=== PATIENT | male | born 1965 | race Caucasian/White ===

== ENCOUNTER 2024-06-23 08:39 | Observation (INO) ==
[2024-06-23] MEDS: KETOROLAC TROMETHAMINE 15 MG/ML VIAL IV STA (09:07)
[2024-06-23 09:25] LABS: Basophils # (auto) 0.05 K/uL (0.00-0.20); Basophils % (auto) 1.1 %; Eosinophils # (auto) 0.18 K/uL (0.00-0.50); Eosinophils % (auto) 3.9 %; Hematocrit (blood only) 46.3 % (42.0-52.0); Hemoglobin 15.9 g/dl (14.0-18.0); Immature Granulocytes # (auto) 0.02 K/uL (0.01-0.20); Immature Granulocytes % (auto) 0.4 %; Lymphocytes # (auto) 1.62 K/uL (1.20-3.40); Lymphocytes % (auto) 34.7 %; Mean Corpuscular Hemoglobin 29.6 pg (25.0-34.0); Mean Corpuscular Hgb Conc 34.3 g/dL (32.0-36.0); Mean Corpuscular Volume 86.2 fL (80.0-100.0); Monocytes # (auto) 0.45 K/uL (0.11-0.59); Monocytes % (auto) 9.6 %; Neutrophils # (auto) 2.35 K/uL (1.40-6.50); Neutrophils % (auto) 50.3 %; Platelet Count 200 K/uL (130-400); RDW Coefficient of Variation 12.6 % (11.5-14.5); RDW Standard Deviation 39.6 fL (36.4-46.3); Red Blood Count 5.37 M/uL (4.70-6.10); White Blood Count 4.67 K/ul (4.8-10.8)
[2024-06-23 09:34] LABS: Albumin Globulin Ratio 1.5 (0.9-2); Albumin Level 4.6 gm/dl (3.4-5.0); Bilirubin,Total 2.2 mg/dl (0.2-1.0); Est GFR (African American) 88.8 ml/min; Est GFR (Non-African American) 76.7 ml/min; Potassium 3.7 mmol/L (3.5-5.1); Total Protein 7.6 gm/dl (6.0-8.3)
--- NOTE | 2024-06-23 09:47 | Emergency Department Note ---
Impression & Plan Left ureteral calculus, Acute left flank pain ED Provider Note NAME: ABEL REZA AGE: 58 SEX: M : 1965 ARRIVES VIA: Walk-In INFORMANT: Patient, ED PROVIDER(S): Raul Pathak DO CHIEF COMPLAINT: Flank pain HPI: The patient is a 58-year-old male who has a history of kidney stones who presented to the emergency department for an evaluation of flank pain. The patient noticed left-sided flank pain that occurred acutely this morning. He had nausea as well as vomiting. He denies having any dysuria or frequency. He denies having any chest pain or difficulty breathing. The patient presented to the emergency department because of the severity of pain. He was not seen by his family doctor prior to coming to the emergency department. ROS: See above HPI for pertinent positives & negatives. A total of 10 systems reviewed and were otherwise negative. PAST MEDICAL HISTORY: See Below PAST SURGICAL HISTORY: See Below FAMILY HISTORY: See Below SOCIAL HISTORY: See Below HOME MEDICATIONS: See Below ALLERGIES: See Below VITALS: See Below PHYSICAL EXAMINATION: GENERAL: The patient is awake and alert. The patient appears uncomfortable. EYES: The conjunctivae are clear. The pupils are round and reactive. EARS, NOSE, MOUTH AND THROAT: The nose is without any evidence of any deformity. NECK: The neck is nontender and supple. RESPIRATORY: Normal respiratory effort is noted there is no evidence of wheezing rhonchi or rales CARDIOVASCULAR: Regular rate and rhythm noted there no murmurs rubs or gallops normal S1 normal S2. GASTROINTESTINAL: The abdomen is soft. Abdomen is nontender. BACK: No midline tenderness or or step-off noted range of motion in flexion extension as well as rotation no signs of muscle spasm noted MUSCULOSKELETAL/EXTREMITIES: There is no evidence of gross deformity full range of motion is noted in the hips and shoulders. SKIN: There is no obvious evidence of any rash. There are no petechiae, pallor or cyanosis noted. NEUROLOGIC: Patient is awake alert and oriented x3 strength is symmetric patellar reflexes are 2+ bilaterally MEDICAL DECISION MAKING: The patient is a 58-year-old male who presented to the emergency department for an evaluation of left flank pain. The patient was found to have a distal left ureteral calculus. He has mild hydronephrosis. The patient was treated with multiple rounds of IV pain medication and IV antiemetics. He was also given IV fluids. The patient was also found have an abnormality on CAT scan that they thought could be related to a renal vein thrombosis but this was found not to be the case on ultrasound. The patient was not feeling much better on reevaluation. I do not feel that he would be a good candidate for outpatient management at this time. I will discuss his condition with the on-call [facility] hospitalist. Triage Nursing notes reviewed. Prior medical records reviewed Vital Signs: reviewed and remarkable for no significant abnormalities Differential diagnosis: Renal colic, UTI, appendicitis, diverticulitis, mesenteric ischemia, aortic pathology, infections, inflammatory bowel disease, PUD, biliary pathology, as well as other pathologies. ER treatment provided: See below Diagnostics interpreted by me: ECG: EKG was obtained in the emergency department. My interpretation is sinus bradycardia 49 bpm. There is no ectopy. There is no acute ST segment abnormalities noted. This was compared to a tracing from May 30, 2022. No changes were noted. Cardiac Monitoring: An order was placed for continuous cardiac monitoring. The monitor shows a rate of 83 bpm with sinus rhythm. Laboratory studies: As stated above and show below. Imaging studies: See below. Radiographic imaging was reviewed by myself Consultation(s): I discussed this case with Luz [facility] Past Med/Surg History Problem List (Updated 06/23/24 @ 14:37 by Raul Pathak DO) Acute left flank pain (Acute) Left ureteral calculus (Acute) COVID-19 (Acute) Medical History Hypertension Social History Smoking Status: Never smoker Preferred Language: Serbian Feels Safe at Home: Yes Allergies Allergies Allergy/AdvReac Type Severity Reaction Status Date / Time No Known Allergies Allergy Unverified 06/23/24 11:16 Home Meds Home Medications Medication Instructions Recorded Confirmed aspirin 81 mg capsule 81 mg PO DAILY 06/23/24 06/23/24 lisinopril 10 mg tablet 10 mg PO DAILY 06/23/24 06/23/24 omeprazole 20 mg capsule,delayed 40 mg PO DAILY 06/23/24 06/23/24 release Results & Data (ED) Vital Signs Vital Signs - 24 hr 06/23/24:43 06/23/24 09:00 06/23/24 09:02 Pulse Rate 72 43 L 64 Pulse Rate from SpO2 Sensor Pulse Rhythm Regular Respiratory Rate 18 16 20 Respiratory Effort / Characteristics Non-Labored Respiratory Depth Normal Respiratory Pattern Regular Blood Pressure 130/81 118/85 Blood Pressure Mean 97 91 Pulse Oximetry 100 99 100 Oxygen Delivery Method Room Air Room Air Sepsis Recent Fever Within 48 Hours No Sepsis New/Unexplained Change in Mental Status N/A Sepsis Action Taken by Nursing No Action Required 06/23/24 09:03 06/23/24 09:42 06/23/24 10:00 Pulse Rate 71 60 62 Pulse Rate from SpO2 Sensor Pulse Rhythm Respiratory Rate 14 17 Respiratory Effort / Characteristics Respiratory Depth Respiratory Pattern Blood Pressure 130/88 126/84 Blood Pressure Mean 102 92 Pulse Oximetry 100 94 Oxygen Delivery Method Room Air Sepsis Recent Fever Within 48 Hours Sepsis New/Unexplained Change in Mental Status Sepsis Action Taken by Nursing 06/23/24 10:30 06/23/24 11:54 06/23/24 12:00 Pulse Rate 79 79 60 Pulse Rate from SpO2 Sensor Pulse Rhythm Respiratory Rate 16 23 17 Respiratory Effort / Characteristics Respiratory Depth Respiratory Pattern Blood Pressure 142/89 H 136/92 137/79 Blood Pressure Mean 114 106 103 Pulse Oximetry 100 98 94 Oxygen Delivery Method Sepsis Recent Fever Within 48 Hours Sepsis New/Unexplained Change in Mental Status Sepsis Action Taken by Nursing 06/23/24 12:09 06/23/24 12:15 06/23/24 12:24 Pulse Rate 45 L 68 63 Pulse Rate from SpO2 Sensor 46 L 71 60 Pulse Rhythm Respiratory Rate 17 18 13 Respiratory Effort / Characteristics Respiratory Depth Respiratory Pattern Blood Pressure Blood Pressure Mean Pulse Oximetry 94 100 100 Oxygen Delivery Method Sepsis Recent Fever Within 48 Hours Sepsis New/Unexplained Change in Mental Status Sepsis Action Taken by Nursing 06/23/24 12:30 06/23/24 13:14 06/23/24 13:30 Pulse Rate 53 L 50 L Pulse Rate from SpO2 Sensor Pulse Rhythm Respiratory Rate 17 18 Respiratory Effort / Characteristics Respiratory Depth Respiratory Pattern Blood Pressure 148/109 H 128/85 120/79 Blood Pressure Mean 119 100 92 Pulse Oximetry 96 98 Oxygen Delivery Method Sepsis Recent Fever Within 48 Hours Sepsis New/Unexplained Change in Mental Status Sepsis Action Taken by [facility] Medications Current Medication List: was personally reviewed by me Laboratory Data Attestation: I reviewed the patient's lab results. 06/23/24 09:00 06/23/24 09:00 Lab Results 06/23/24 06/23/24 Range/Units 09:00 13:05 WBC 4.67 L (4.8-10.8) K/ul RBC 5.37 (4.70-6.10) M/uL Hgb 15.9 (14.0-18.0) g/dl Hct 46.3 (42.0-52.0) % MCV 86.2 (80.0-100.0) fL MCH 29.6 (25.0-34.0) pg MCHC 34.3 (32.0-36.0) g/dL RDW Std Deviation 39.6 (36.4-46.3) fL RDW Coeff of Joe 12.6 (11.5-14.5) % Plt Count 200 (130-400) K/uL MPV 9.0 L (9.4-12.4) fL Immature Gran % (Auto) 0.4 % Neut % (Auto) 50.3 % Lymph % (Auto) 34.7 % [place] % (Auto) 9.6 % Eos % (Auto) 3.9 % Baso % (Auto) 1.1 % Neut # (Auto) 2.35 (1.40-6.50) K/uL Lymph # (Auto) 1.62 (1.20-3.40) K/uL [place] # (Auto) 0.45 (0.11-0.59) K/uL Eos # (Auto) 0.18 (0.00-0.50) K/uL Baso # (Auto) 0.05 (0.00-0.20) K/uL Immature Gran # (Auto) 0.02 (0.01-0.20) K/uL Sodium 138 (136-145) mmol/L Potassium 3.7 (3.5-5.1) mmol/L Chloride 105 (98-107) mmol/L Carbon Dioxide 25 (21-32) mmol/L Anion Gap 8 (3-11) BUN 16 (6-23) mg/dl Creatinine 1.07 (0.6-1.4) mg/dl Est Cr Clr Drug Dosing 86.0 ml/min Est GFR ( Amer) 88.8 ml/min Est GFR (Non-Af Amer) 76.7 ml/min BUN/Creatinine Ratio 15.0 (10-20) Glucose 137 H (70-99(Fasting)) mg/dl Calcium 10.0 (8.6-10.3) mg/dl Total Bilirubin 2.2 H (0.2-1.0) mg/dl AST 23 (13-39) U/L ALT 25 (7-52) U/L Alkaline Phosphatase 89 (34-104) U/L Total Protein 7.6 (6.0-8.3) gm/dl Albumin 4.6 (3.4-5.0) gm/dl Globulin 3.0 (2.5-4.0) gm/dl Albumin/Globulin Ratio 1.5 (0.9-2) Lipase 26 (11-82) U/L Urine Color Yellow Urine Appearance Clear (Clear) Urine pH 6.0 (4.5-7.5) Ur Specific [place] 1.018 (1.000-1.030) Urine Protein Negative (Negative) Urine Glucose (UA) Negative (Negative) Urine Ketones 1+ H (Negative) Urine Blood 1+ H (Negative) Urine Nitrite Negative (Negative) Urine Bilirubin Negative (Negative) Urine Urobilinogen Positive H (Negative) Ur Leukocyte Esterase Negative (Negative) Urine WBC (Auto) 0-5 (0-5) /hpf Urine RBC (Auto) 3-5 H (0-2) /hpf U Hyaline Cast (Auto) 0-2 (0-2) /lpf U Epithel Cells (Auto) 0-2 (0-2) /hpf Urine Bacteria (Auto) None Seen (None Seen) Administered Medications Discontinued Medications Sodium Chloride (Nss) 500 mls @ 999 mls/hr IV .Q31M ONE Stop: 06/23/24 12:05 Last Infusion: 06/23/24 12:10 Dose: Infused Documented By: Admin: 06/23/24 11:39 Dose: 999 mls/hr Documented By: TEE Ketorolac Tromethamine (Ketorolac Tromethamine 15 Mg/Ml Vial) 10 mg IV ONE STA Stop: 06/23/24 08:58 Last Admin: 06/23/24 09:07 Dose: 10 mg Documented By: TEE Morphine Sulfate (Morphine Sulfate 4 Mg/Ml 1 Ml Carp\Vial) 4 mg IV NOW STA Stop: 06/23/24 09:20 Last Admin: 06/23/24 09:52 Dose: 4 mg Documented By: TEE Morphine Sulfate (Morphine Sulfate 4 Mg/Ml 1 Ml Carp\Vial) 4 mg IV NOW STA Stop: 06/23/24 11:36 Last Admin: 06/23/24 11:39 Dose: 4 mg Documented By: TEE Ondansetron HCl (Ondansetron Inj 2 Mg/Ml 2 Ml Vial) Confirm Administered Dose 4 mg .ROUTE .STK-MED ONE Stop: 06/23/24 11:46 Last Admin: 06/23/24 11:54 Dose: 4 mg Documented By: TEE Imaging Data Attestation: I personally reviewed and interpreted this imaging study as follows: My Impression: CT of the abdomen and pelvis was obtained in the emergency department. My interpretation is no free air or signs of bowel obstruction, final report below. Radiologist's Impression: Abdomen/Pelvis CT 06/23/24 08:[address] WITHOUT CONTRAST CT DOSE: 1371.89 mGy.cm HISTORY: L flank pain h/o kidney stones TECHNIQUE: Multiaxial CT images of the abdomen and pelvis were performed without contrast. A dose lowering technique was utilized adhering to the principles of ALARA. COMPARISON STUDY: None. FINDINGS: The lung bases are clear. No pneumoperitoneum. No pneumatosis. There is a 2.6 cm sclerotic focus within the right posterior iliac bone. This is indeterminate but may represent a bone island. A few additional smaller sclerotic foci within the pelvis also favor bone islands. Prior cholecystectomy. The unenhanced liver, spleen, adrenal glands, and pancreas are unremarkable. Normal caliber abdominal aorta. No retroperitoneal lymphadenopathy. There is a punctate stone within the lower pole of the right kidney. No left renal calculi. There is an 11 mm hypodense lesion within the interpolar right kidney. This is incompletely characterized on this noncontrast study but statistically represents a cyst. There is mild left hydroureteronephrosis which is secondary to a 2 mm stone either within or just beyond the left ureterovesical junction on image 315. The bladder is decompressed and not well evaluated. The prostate gland is mildly enlarged. No pelvic free fluid or pelvic lymphadenopathy. No bowel wall thickening or obstruction. Colonic diverticulosis. No evidence for acute diverticulitis. There is thickening and greater than expected density within the distal left renal vein. There is also mild surrounding fat stranding at this location. The fat stranding is likely due to the left-sided hydronephrosis. However, dedicated duplex ultrasound of the left renal vein is recommended to exclude the less likely possibility of a left renal vein thrombosis. IMPRESSION: 1. Mild left hydroureteronephrosis secondary to a 2 mm stone either within or just beyond the left ureterovesical junction. 2. Right-sided nephrolithiasis. 3. Greater than expected density within the distal left renal vein with mild surrounding fat stranding. The fat stranding is likely due to the left-sided hydronephrosis. However, dedicated duplex ultrasound of the left renal vein is recommended to exclude the less likely possibility of a left renal vein thrombosis. 4. No bowel wall thickening or obstruction. 5. A 2.5 cm sclerotic focus in the right posterior iliac bone. This is indeterminate but favors a bone island. 6. Colonic diverticulosis. No evidence for acute diverticulitis. ACT 112: Negative or not required by law. Electronically signed by: Nitin Bridges M.D. 06/23/2024 9:52 AM Renal Artery Duplex 06/23/24 10:21 US duplex renal artery HISTORY: 58 years-old Male r/o left renal vein thrombosis acute left-sided flank pain COMPARISON: CT same day TECHNIQUE: Multiple real-time sonographic images of the left renal vasculature was obtained assessing grayscale appearance, color and spectral flow FINDINGS: Left kidney measures 11.9 x 5.8 x 5.4 cm. Patent left renal artery with low resistance waveforms. Mild left-sided hydronephrosis with 3 mm calculus in the left ureterovesicular junction. Patent renal vein without thrombus identified. IMPRESSION: 1. Patent left renal artery and vein. 2. Mild left-sided hydronephrosis with 3 mm calculus again noted within the left ureterovesicular junction. ACT 112: Negative or not required by law. The above report was generated using voice recognition software. It may contain grammatical, syntax or spelling errors. Electronically signed by: Joce Hernandez M.D. 06/23/2024 11:55 AM Discharge Plan Visit Data Chief Complaint: Back Injury/Pain Stated Complaint: LOWER L BACK PAIN ED Provider: Raul Pathak ED Midlevel Provider: Enmanuel Baig Discharge Problem: Left ureteral calculus, Acute left flank pain Patient Disposition: Being Evaluated by Hospitalist Forms Stand Alone Forms: My [facility] Prescriptions Prescriptions: No Action lisinopril 10 mg tablet 10 mg PO DAILY omeprazole 20 mg capsule,delayed release(DR/EC) 40 mg PO DAILY aspirin 81 mg Capsule 81 mg PO DAILY Referrals Referrals: David Shahid MD [Primary Care Provider] -
[2024-06-23] MEDS: MoRPHine SULFATE 4 MG/ML 1 ML CARP\\VIAL IV STA ×2 (09:52→11:39)
--- NOTE | 2024-06-23 09:55 | CT Scan Report ---
ABDOMEN AND PELVIS CT WITHOUT CONTRAST CT DOSE: 1371.89 mGy.cm HISTORY: L flank pain h/o kidney stones TECHNIQUE: Multiaxial CT images of the abdomen and pelvis were performed without contrast. A dose lo wering technique was utilized adhering to the principles of ALARA. COMPARISON STUDY: None. FINDINGS: The lung bases are clear. No pneumoperitoneum. No pneumatosis. There is a 2.6 cm sclerotic focus within the right posterior iliac bone. This is indeterminate but may represent a bone island. A few additional smaller sclerotic foci within the pelvis also favor bone islands. Prior cholecystecto my. The unenhanced liver, spleen, adrenal glands, and pancreas are unremarkable. Normal caliber abdom inal aorta. No retroperitoneal lymphadenopathy. There is a punctate stone within the lower pole of th e right kidney. No left renal calculi. There is an 11 mm hypodense lesion within the interpolar right kidney. This is incompletely characterized on this noncontrast study but statistically represents a cyst. There is mild left hydroureteronephrosis which is secondary to a 2 mm stone either within or ju st beyond the left ureterovesical junction on image 315. The bladder is decompressed and not well maddy luated. The prostate gland is mildly enlarged. No pelvic free fluid or pelvic lymphadenopathy. No bow el wall thickening or obstruction. Colonic diverticulosis. No evidence for acute diverticulitis. Ther e is thickening and greater than expected density within the distal left renal vein. There is also mi ld surrounding fat stranding at this location. The fat stranding is likely due to the left-sided hydr onephrosis. However, dedicated duplex ultrasound of the left renal vein is recommended to exclude the less likely possibility of a left renal vein thrombosis. IMPRESSION: 1. Mild left hydroureteronephrosis secondary to a 2 mm stone either within or just beyond the left ur eterovesical junction. 2. Right-sided nephrolithiasis. 3. Greater than expected density within the distal left renal vein with mild surrounding fat strandin g. The fat stranding is likely due to the left-sided hydronephrosis. However, dedicated duplex ultras ound of the left renal vein is recommended to exclude the less likely possibility of a left renal vei n thrombosis. 4. No bowel wall thickening or obstruction. 5. A 2.5 cm sclerotic focus in the right posterior iliac bone. This is indeterminate but favors a bon e island. 6. Colonic diverticulosis. No evidence for acute diverticulitis. ACT 112: Negative or not required by law. Electronically signed by: Nitin Bridges M.D. 06/23/2024 9:52 AM
--- OUTSIDE RECORDS SUMMARY | 2024-06-23 11:17 | External Medical Summary | Summary of Care ---
Author Name Unknown Organization [facility] Address [address] [place] [address] Phone [phone] Care Team Providers Care Lens Inspector Name Role Phone Nichole García DO Primary Care Provider + [phone] Reason for Referral * Ancillary Services (Within 10 days (routine)) - Authorized Specialty Diagnoses / Procedures Referred By Contfrida t Referred To Contact Gastroenterology Diagnoses Family history of colon cancer Nichole García DO [address] [place] [address] [place] [address] Referral ID Status Reason Start Date Expiration Date Visits Requested Visits Authorized [id number] Authorized Ancillary Services Required 03/25/[phone] Question Answer Referral Priority Within 10 days (routine) Where should this appointment be scheduled? [facility] Comments ALERT: Do not order for pediatric patients (18 years or younger). Cancel off screen and order PEDS GASTROENTEROLOGY CONSULT (Type: 1 visit only-Evaluate and Treat) The following Pt. Instructions are available: - Gastro Colonoscopy Prep Instructions [41703] - Gastro Colonoscopy Prep Instructions (Japanese Version) [[id number]] Go to the Pt. Instructions section within the Visit Navigator to access. Colonoscopy ASGE Guidelines: Single first degree relative with cancer at age greater than 60 (begin at age 40, 5 year intervals) ADDITIONAL INFORMATION 1. Is the patient on Coumadin? No 2. Is the patient on Pradaxa? No Reason for Visit * Reason Onset Date Comments Referral 03/21/2024 Encounter Details Date Type Department Care Team ([facility] Contact Info) Description 03/21/2024 Telephone Family Medicine [address] [place] [phone] [address] Garc[address] [place] [address] Referral Allergies Active Allergy Reactions Criticality Noted Date Comments No Known Drug Allergy 07/09/2001 documented as of this encounter (statuses as of 03/30/2024) Medications Medication Sig Dispensed Refills Start Date End Date Status aspirin 81 MG chewable tablet Take 1 Tablet by mouth in the morning. 0 Active Tretinoin Microsphere 0.1 % External GelIndications:Acne vulgaris Apply topically to affected area daily. apply to acne. 20 g 5 11/12/2022 Active Clindamycin Phosphate 1 % External SolutionIndications :Other acne USE DIRECTED TWICE A DAY 60 mL 1 12/18/2022 Active Omeprazole 20 MG Oral Capsule Delayed Release (PriLOSEC)Indicatio ns:Esophageal reflux TAKE 2 CAPSULES BY MOUTH EVERY DAY 180 Capsule 1 07/29/2023 Active Lisinopril 10 MG Oral Tablet (Prinivil)Indicatio ns:Acute right-sided low back pain without sciatica TAKE 1 TABLET BY MOUTH EVERY DAY IN THE MORNING 90 Tablet 2 07/29/2023 Active Tadalafil 5 MG Oral Tablet (Cialis)Indications :BPH with obstruction/lower urinary tract symptoms Take 1 Tablet by mouth in the morning. 90 Tablet 3 12/29/2023 Active documented as of this encounter (statuses as of 03/30/2024) Active Problems Problem Noted Date Diagnosed Date CKD (chronic kidney disease), stage II 2 Overview: EGFR 80 Sebaceous cyst 07/16/2017 Primary hypertension 06/09/2016 BPH with obstruction/lower urinary tract symptom s 11/29/2015 Gastroesophageal reflux dise ase with esophagitis without hemorrhage PPD positive BMI 35.0-35.9,adult Overview: 231 lbs Acne vulgaris documented as of this encounter (statuses as of 03/30/2024) Resolved Problems Problem Noted Date Diagnosed Date Resolved Date Arthritis of left knee 03/05/202312/29 Peripheral tear of medial me niscus of left knee as current injury 07/16/2021 03/05/2023 Overview: High-grade partial tear at the posterior root attachment of the medial meniscus with horizontal and radial components HTN, goal below 140/90 09/28/200907/03 Overview: Modified per HTN Taxonomy. Hyperglycemia 01/27/2009 10/20/2018 Overview: Glucose 101, insulin level 15.4 HTN, goal below 140/90 01/19/200909/28 Overview: Modified per HTN Taxonomy. PLANTAR FIBROMATOSIS 07/14/2005 014 LOC OSTEOARTH NOS-L-LEG 12/16/200406/24 Other acne 10/09/2004 12/31/2015 Closed fracture of metatarsal bone 08/06/2004 12/16/2011 Overview: ICD-10 update of inactive term Asthma with severity to be determined 11/09/2013 Overview: ICD-10 update of inactive term Nonspecific reaction to tube rculin skin test without active tuberculosis 12/16/2011 Overview: ICD-10 update of inactive term BMI 32.0-32.9,adult 07/14/20 14 documented as of this encounter (statuses as of 03/30/2024) Immunizations Name Administration Dates Next Due Pneumococcal Polysaccharide PPV23 (Pneumovax) 11/23/2007 Seasonal Influenza, PF, 6 M & above, IM , (FluLaval or Fluzone) 10/20/2018 Seasonal Influenza, Quadriva lent, No Preserve, IM 10/11/2015 Seasonal Influenza, Split, I IV3, With Preserve, Inj 07/24/2016,09/23/2009,09/23/2008 TD - Tetanus/Diptheria (ADULT) 06/15/2006 TDAP (age 10 and older)(Boostrix) 08/01/2022,12/2012 documented as of this encounter Social History Tobacco Use Types Packs/Day Years Used Date Smoking Tobacco: Never Smokeless Tobacco: Never Alcohol Use Standard Drinks/Week Comments Yes 0 (1 standard drink = 0.6 oz pur e alcohol) once a week PHQ-2 Answer Date Recorded PHQ-2 Score 0 03/12/2019 Sex and Gender Information Value Date Recorded Sex Assigned at Not on file Gender Identity Not on file Sexual Orientation Not on file Job Start Date Occupation Industry Not on file Not on file Not on file documented as of this encounter Miscellaneous Notes * Telephone Encounter - Aury Orr OSA - 03/30/2024 10:29 AM EDT Patient rescheduled to have both procedures done at the same time in August * Telephone Encounter - Sharona Kaur OSA - 03/25/2024 9:04 AM EDT Pt is scheduled already for upper endoscopy on 04/05/24, can this be added to that? * Telephone Encounter - Nichole García DO - 03/25/2024 8:30 AM EDT Please schedule colonoscopy. * Telephone Encounter - Nichole García DO - 03/25/2024 8:25 AM EDT If he has a family history of colon cancer, he would be eligible for colonoscopy every 5 years. 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 Colonoscopy ordered. My G sent to patient. * Telephone Encounter - Gulshan Tolentino OSA - 03/23/2024 9:45 AM EDT Spoke with Jeet pt stated father and friends in the [employer] no sure if they were expos to anythinghave been cancer pt is very concern request call back [phone]. Patient was told he was Not dueunt2026. Has the patient been seen for this problem? (Y/N)?: Y If No, an appt needs to be scheduled before a referral will be placed (exception: proceed with referral request if referral request is for a yearly routine appointment with speciality) Patient Name: Jeet Gorman Patient Primary care provider: Nichole García, DO Does this need to be an insurance referral (Y/N)?: Y If Yes, does the insurance referral need to be placed into the Navinet system? Name of preferred specialist: [facility] Type of specialist: GI Location of specialist: [facility] Reason for visit: SCREENING COLONOSCOPY Date of visit: NA NEEDS REFERRAL FIRST * Telephone Encounter - Nichole García DO - 03/22/2024 8:40 PM EDT Not due until 2026. MyG sent to patient for clarification. * Telephone Encounter - Roxana Jarquin OSA - 03/21/2024 1:10 PM EDT Has the patient been seen for this problem? (Y/N)?: Y If No, an appt needs to be scheduled before a referral will be placed (exception: proceed with referral request if referral request is for a yearly routine appointment with speciality) Patient Name: Jeet Gorman Patient Primary care provider: Nichole García, DO Does this need to be an insurance referral (Y/N)?: Y If Yes, does the insurance referral need to be placed into the Navinet system? Name of preferred specialist: [facility] Type of specialist: GI Location of specialist: [facility] Reason for visit: SCREENING COLONOSCOPY Date of visit: NA NEEDS REFERRAL FIRST documented in this encounter Plan of Treatment Upcoming Encounters Date Type Department Care Team (Latest Contact Info) Description 05/24/2024 3:40 PM EDT Office Visit [facility] [address] [place] [phone] Janie Gorman DO [address] [facility] [place] [address] 07/22/2024 8:30 AM EDT Office Visit Family Medicine [address] [place] [phone] Nichole García [address] [place] [address] 08/01/2024 8:30 AM EDT Office Visit Urology, [facility] [address] [place] [address] Bhavik Limon MD [address] [address] [place] [address] 08/31/2024 9:00 AM EDT Hospital Encounter ENDO [facility], Endoscopy Room [facility] [address] [place] [phone] Vilma Bell MD [address] [place] [address] 08/31/2024 9:00 AM EDT - 08/31/2024 10:00 AM EDT Surgery ENDO [facility], Endoscopy Room [facility] [address] [place] [phone] Vilma Bell MD [address] [place] [address] COLONOSCOPY FLEXIBLE PROXIMAL DIAGNOSTIC Scheduled Procedures Name Priority Associated Diagnoses Date/Ti me COLONOSCOPY FLEXIBLE PROXIMA L DIAGNOSTIC GERD (gastroesophageal reflux disease) Family history of colon cancer 08/31/2024 9:00 AM EDT ESOPHAGOGASTRODUODENOSCOPY ( EGD), FLEXIBLE, TRANSORAL, DIAGNOSTIC GERD (gastroesophageal reflux disease) Family history of colon cancer 08/31/2024 9:00 AM EDT Scheduled Referrals Name Type Priority Associated Diagnoses Orde r Schedule COLONOSCOPY, GI REFERRAL OP Referral Within 10 days (routine) Family history of colon cancer Ordered: 03/25/2024 Health Maintenance Due Date Last Done Comments Hepatitis B (1 of 3 - 19+ 3-dose series) 1985 Cologuard 2011 Fecal Occult Blood Test 2011 Sigmoidoscopy 2011 Zoster Vaccines (1 of 2) 2016 Depression Screening 03/10/2020 03/10/2019 COVID-19 Vaccine ( season) 2023 Influenza Vaccine (FLU shot) (Season Ended) 2024 10/20/2018, 11/27/2017, 11/12/2016, Additional history exists GFR 11/27/2024 11/27/2023, 01/22, 11/19/2022, Additional history exists Albumin/Creatinine Ratio 03/19/2025 03/19/2022, 03/0 11/2020 Diabetes Screening 11/27/2026 11/27/2023, 0 02/18/2023, 02/18/2023, Additional history exists Colonoscopy 01/01/2027 01/01/2017, 01/01/2017 Colorectal Cancer Screening 01/01/2027 Lipid Panel 11/27/2028 11/27/2023, 04/24, 10/19/2018, Additional history exists DTaP,Tdap,and Td Vaccines (3 - Td or Tdap) 08/01/2032 08/01/2022, 06/24/2013, 06/15/2006 Pneumococcal Vaccine: Pediatrics (0 to 5 Years) and At-Risk Patients (6 to 64 Years) Aged Out 11/23/2007 No longer eligible based on patient's age to complete this topic GARDASIL-HPV IMMUNIZATION SERIES Aged Out No longer eligible based on patient's age to complete this topic MENINGOCOCCAL (MENACTRA/MENVEO) Aged Out No longer eligible based on patient's age to complete this topic documented as of this encounter Medical Devices Not on filedocumented as of this encounter Visit Diagnoses Diagnosis Family history of colon cancer- Primary Family history of malignant neoplasm of gastrointestinal tract GERD (gastroesophageal reflux disease) Esophageal reflux Family history of colon cancer Family history of malignant neoplasm of gastrointestinal tract documented in this encounter Advance Directives Latest Code Status on File Code Status Date Activated Date Inactivated Comments Full Code 05/11/2023 10:28 AM 05/11/2023 3:23 PM This order reflects the patients wishes and were consensually agreed upon. Question Answer Comments Discussion of Advance Directives occurred with: Patient Code Status History Code Status Date Activated Date Inactivated Comments Full Code 05/11/2023 7:34 AM 05/11/2023 10:28 AM This order reflects the patients wishes and were consensually agreed upon. Question Answer Comments Discussion of Advance Directives occurred with: Patient Care Teams Lens Inspector Relationship Specialty Start Date End Date Nichole García DO [address] [place] [address] [place] [address] PCP - General Internal Medicine 12/29/23 documented as of this encounter
--- OUTSIDE RECORDS SUMMARY | 2024-06-23 11:17 | External Medical Summary | Summary of Care ---
Author Name Unknown Organization [facility] Address [address] [place] [address] Phone [phone] Care Team Providers Care Consumer Insight Manager Name Role Phone Howie Singh Primary Care Provider + [phone] Reason for Visit * Reason Comments eRx-Medication Refill Encounter Details Date Type Department Care Team (Late st Contact Info) Description 04/04/2024 Refill Family Medicine [address] [phone] David Shahid MD [address] [place] [address] [place] [address] Esophageal reflux Allergies Active Allergy Reactions Criticality Noted Date Comments No Known Drug Allergy 07/09/2001 documented as of this encounter (statuses as of 04/05/2024) Medications Medication Sig Dispensed Refills Start Date End Date Status aspirin 81 MG chewable tablet Take 1 Tablet by mouth in the morning. 0 Active Tretinoin Microsphere 0.1 % External GelIndications:Ac ne vulgaris Apply topically to affected area daily. apply to acne. 20 g 5 11/12/2022 Active Clindamycin Phosphate 1 % External SolutionIndicatio ns:Other acne USE DIRECTED TWICE A DAY 60 mL 1 12/18/2022 Active Lisinopril 10 MG Oral Tablet (Prinivil)Indicat ions:Acute right-sided low back pain without sciatica TAKE 1 TABLET BY MOUTH EVERY DAY IN THE MORNING 90 Tablet 2 07/29/2023 Active Tadalafil 5 MG Oral Tablet (Cialis)Indicatio ns:BPH with obstruction/lower urinary tract symptoms Take 1 Tablet by mouth in the morning. 90 Tablet 3 12/29/2023 Active Omeprazole 20 MG Oral Capsule Delayed Release (PriLOSEC)Indicat ions:Esophageal reflux TAKE 2 CAPSULES BY MOUTH EVERY DAY 180 Capsule 1 04/05/2024 Active Omeprazole 20 MG Oral Capsule Delayed Release (PriLOSEC)Indicat ions:Esophageal reflux TAKE 2 CAPSULES BY MOUTH EVERY DAY 180 Capsule 1 07/29/2023 4 Discontinued documented as of this encounter (statuses as of 04/05/2024) Active Problems Problem Noted Date Diagnosed Date CKD (chronic kidney disease), stage II 2 Overview: EGFR 80 Sebaceous cyst 07/16/2017 Primary hypertension 06/09/2016 BPH with obstruction/lower urinary tract symptom s 11/29/2015 Gastroesophageal reflux dise ase with esophagitis without hemorrhage PPD positive BMI 35.0-35.9,adult Overview: 231 lbs Acne vulgaris documented as of this encounter (statuses as of 04/05/2024) Resolved Problems Problem Noted Date Diagnosed Date [...] as of this encounter (statuses as of 04/05/2024) Immunizations Name Administration Dates Next Due Pneumococcal [...] encounter Miscellaneous Notes * Telephone Encounter - Howie Arroyo [facility] - 04/05/2024 12:02 PM EDT Signed Prescriptions: Disp Refills Omeprazole 20 MG Oral Capsule Delayed Rele*180 Ca*1 Sig: TAKE 2 CAPSULES BY MOUTH EVERY DAYAuthorizing Provider: HOWIE SINGH User: HOWIE ARROYO documented in this encounter Plan of Treatment Upcoming Encounters Date Type Department Care Team (Latest Contact Info) Description 04/21/2024 4:30 PM EDT Office Visit [facility] Disorders [facility]tr [facility] [address] [place] [phone] Noemi Gamez CRNP [address] [place] [address] 07/22/2024 8:30 AM EDT Office Visit Family Medicine [address] [place] [phone] [place] [address] 08/01/2024 8:30 AM EDT Office Visit Urology, [facility] [address] [place] [address] Bhavik Limon MD [address] [place] [address] [place] [address] 08/31/2024 9:00 AM EDT Hospital Encounter ENDO [facility], Endoscopy Room [facility] [address] [place] [phone] Vilma Bell MD [address] [place] [address] 08/31/2024 9:00 AM EDT - 08/31/2024 10:00 AM EDT Surgery ENDO [facility], Endoscopy Room [facility] [address] [place] [phone] Vilma Bell MD [address] [place] [address] COLONOSCOPY FLEXIBLE PROXIMAL DIAGNOSTIC Scheduled Procedures Name Priority Associated Diagnoses Date/Ti me COLONOSCOPY FLEXIBLE PROXIMA L DIAGNOSTIC GERD (gastroesophageal reflux disease) Family history of colon cancer 08/31/2024 9:00 AM EDT ESOPHAGOGASTRODUODENOSCOPY ( EGD), FLEXIBLE, TRANSORAL, DIAGNOSTIC GERD (gastroesophageal reflux disease) Family history of colon cancer 08/31/2024 9:00 AM EDT Health Maintenance Due Date Last Done Comments Hepatitis B (1 of 3 - 19+ 3-dose series) 1985 Cologuard 2011 Fecal Occult Blood Test 2011 Sigmoidoscopy 2011 Zoster Vaccines (1 of 2) 2016 Depression Screening 03/10/2020 03/10/2019 COVID-19 Vaccine ( season) 2023 Influenza Vaccine (FLU shot) (Season Ended) 2024 10/20/2018, 11/27/2017, 11/12/2016, Additional history exists GFR 11/27/2024 11/27/2023, /2 07/2023, 11/19/2022, Additional history exists Albumin/Creatinine Ratio 03/19/2025 03/19/2022, 03/0 11/2020 Diabetes Screening 11/27/2026 11/27/2023, 0 02/18/2023, 02/18/2023, Additional history exists Colonoscopy 01/01/2027 01/01/2017, 01/01/2017 Colorectal Cancer Screening 01/01/2027 Lipid Panel 11/27/2028 11/27/2023, 06/11/2018, 10/19/2018, Additional history exists DTaP,Tdap,and Td Vaccines [...] as of this encounter Visit Diagnoses Diagnosis Esophageal reflux GERD (gastroesophageal reflux disease) Esophageal reflux Family [...] Advance Directives occurred with: Patient Care Teams Consumer Insight Manager Relationship Specialty Start Date End Date Howie Singh DO [address] [place] [address] [place] [address] PCP - General Internal Medicine 12/29/23 documented as of this encounter
--- OUTSIDE RECORDS SUMMARY | 2024-06-23 11:17 | External Medical Summary | Summary of Care ---
Author Name Unknown Organization [facility] Address [address] [place] [address] Phone [phone] Care Team Providers Care Property Site Manager Name Role Phone García, Nicholevivian Garrison Primary Care Provider [phone] Encounter Details Date Type Department Care Team (Late st Contact Info) Description 04/22/2024 Telephone Pulmonary Medicine, [facility] [address] [place] [address] Noemi Gamez CRNP [address] [facility] [place] [address] Allergies Active Allergy Reactions Criticality Noted Date Comments No Known Drug Allergy 07/09/2001 documented as of this encounter (statuses as of 04/22/2024) Medications Medication Sig Dispensed Refills Start Date End Date Status aspirin 81 MG chewable tablet Take 1 Tablet by mouth in the morning. Active Tretinoin Microsphere 0.1 % External GelIndications:Acne vulgaris Apply topically to affected area daily. apply to acne. 20 g 5 11/12/2022 Active Clindamycin Phosphate 1 % External SolutionIndications :Other acne USE DIRECTED TWICE A DAY 60 mL 1 12/18/2022 Active Tadalafil 5 MG Oral Tablet (Cialis)Indications :BPH with obstruction/lower urinary tract symptoms Take 1 Tablet by mouth in the morning. 90 Tablet 3 12/29/2023 Active Omeprazole 20 MG Oral Capsule Delayed Release (PriLOSEC)Indicatio ns:Esophageal reflux TAKE 2 CAPSULES BY MOUTH EVERY DAY 180 Capsule 1 04/05/2024 Active Lisinopril 10 MG Oral Tablet (Prinivil)Indicatio ns:Acute right-sided low back pain without sciatica TAKE 1 TABLET BY MOUTH EVERY DAY IN THE MORNING 90 Tablet 2 04/19/2024 Active documented as of this encounter (statuses as of 04/22/2024) Active Problems Problem Noted Date Diagnosed Date CKD (chronic kidney disease), stage II Overview: EGFR 80 Sebaceous cyst 07/16/2017 Primary hypertension 06/09/2016 BPH with obstruction/lower urinary tract symptom s 11/29/2015 Gastroesophageal reflux dise ase with esophagitis without hemorrhage PPD positive BMI 35.0-35.9,adult Overview: 231 lbs Acne vulgaris documented as of this encounter (statuses as of 04/22/2024) Resolved Problems Problem Noted Date Diagnosed Date [...] as of this encounter (statuses as of 04/22/2024) Immunizations Name Administration Dates Next Due Pneumococcal [...] encounter Miscellaneous Notes * Telephone Encounter - Malu Matt OSA - 04/22/2024 8:46 AM EDT CPAP pressure adjustment faxed to [facility] with confirmation. documented in this encounter Plan of Treatment Upcoming Encounters Date Type Department Care Team (Latest Contact Info) Description 07/22/2024 8:30 AM EDT Office Visit Family Medicine [address] [place] [phone] Nichole García[address] [place] [address] 08/01/2024 8:30 AM EDT Office Visit Urology, [facility] [place] [address] Bhavik Limon MD [address] [place] [address] 08/31/2024 9:00 AM EDT Hospital Encounter [facility], Endoscopy Room [facility] [address] [facility] [place] [phone] Vilma Bell MD [address] [place] [address] 08/31/2024 9:00 AM EDT - 08/31/2024 10:00 AM EDT Surgery ENDO [facility], Endoscopy Room [facility] [address] [facility] [place] [phone] Vilma Bell MD [address] [place] [address] COLONOSCOPY FLEXIBLE PROXIMAL DIAGNOSTIC 04/04/2025 10:40 AM EDT Office Visit [facility] Disorders [facility]tr [facility] [address] [employer] [place] [phone] Janie Gorman DO 132 [facility] [place] [address] Scheduled Procedures Name Priority Associated Diagnoses Date/Ti [...] Cancer Screening 01/01/2027 Lipid Panel 11/27/2028 11/27/2023, 06/2 11/2018, 10/19/2018, Additional history exists DTaP,Tdap,and Td Vaccines [...] Not on filedocumented as of this encounter Advance Directives * Full Code (Latest Code Status on File) Date Activated Date Inactivated Comments 05/11/2023 10:28 AM 05/11/2023 3:23 PM This order reflects the patients wishes and were consensually agreed upon. Question Answer Comments Discussion of Advance Directives occurred with: Patient * Full Code Date Activated Date Inactivated Comments 05/11/2023 7:34 AM 05/11/2023 10:28 AM This order reflects the patients wishes and were consensually agreed upon. Question Answer Comments Discussion of Advance Directives occurred with: Patient Care Teams Property Site Manager Relationship Specialty Start Date End Date Nichole García DO [address] [place] [address] [place] [address] PCP - General Internal Medicine 12/29/23 documented as of this encounter
--- OUTSIDE RECORDS SUMMARY | 2024-06-23 11:17 | External Medical Summary | Summary of Care ---
Author Name Unknown Organization [facility] Address [address] [place] [address] Phone [phone] Care Team Providers Care Airline Pilot/First Officer Name Role Phone Howie Singh Primary Care Provider + [phone] Reason for Visit * Reason Comments eRx-Medication Refill Encounter Details Date Type Department Care Team (Late st Contact Info) Description 04/18/2024 Refill Family Medicine [address] [address] David Shahid MD [address] [place] [address] [place] [address] Acute right-sided low back pain without sciatica Allergies Active Allergy Reactions Criticality Noted Date Comments No Known Drug Allergy 07/09/2001 documented as of this encounter (statuses as of 04/19/2024) Medications Medication Sig Dispensed Refills Start Date End Date Status aspirin 81 MG chewable tablet Take 1 Tablet by mouth in the morning. Active Tretinoin Microsphere 0.1 % External GelIndications:Ac ne vulgaris Apply topically to affected area daily. apply to acne. 20 g 5 11/12/2022 Active Clindamycin Phosphate 1 % External SolutionIndicatio ns:Other acne USE DIRECTED TWICE A DAY 60 mL 1 12/18/2022 Active Tadalafil 5 MG Oral Tablet (Cialis)Indicatio ns:BPH with obstruction/lower urinary tract symptoms Take 1 Tablet by mouth in the morning. 90 Tablet 3 12/29/2023 Active Omeprazole 20 MG Oral Capsule Delayed Release (PriLOSEC)Indicat ions:Esophageal reflux TAKE 2 CAPSULES BY MOUTH EVERY DAY 180 Capsule 1 04/05/2024 Active Lisinopril 10 MG Oral Tablet (Prinivil)Indicat ions:Acute right-sided low back pain without sciatica TAKE 1 TABLET BY MOUTH EVERY DAY IN THE MORNING 90 Tablet 2 04/19/2024 Active Lisinopril 10 MG Oral Tablet (Prinivil)Indicat ions:Acute right-sided low back pain without sciatica TAKE 1 TABLET BY MOUTH EVERY DAY IN THE MORNING 90 Tablet 2 07/29/2023 4 Discontinued documented as of this encounter (statuses as of 04/19/2024) Active Problems Problem Noted Date Diagnosed Date CKD (chronic kidney disease), stage II 2 Overview: EGFR 80 Sebaceous cyst 07/16/2017 Primary hypertension 06/09/2016 BPH with obstruction/lower urinary tract symptom s 11/29/2015 Gastroesophageal reflux dise ase with esophagitis without hemorrhage PPD positive BMI 35.0-35.9,adult Overview: 231 lbs Acne vulgaris documented as of this encounter (statuses as of 04/19/2024) Resolved Problems Problem Noted Date Diagnosed Date [...] as of this encounter (statuses as of 04/19/2024) Immunizations Name Administration Dates Next Due Pneumococcal [...] encounter Miscellaneous Notes * Telephone Encounter - Galileo Kevin, [facility] - 04/19/2024 5:47 PM EDTSigned Prescriptions: Disp Refills Lisinopril 10 MG Oral Tablet (Prinivil) 90 Tab*2 Sig: TAKE 1 TABLET BY MOUTH EVERY DAY IN THE MORNINGAuthorizing Provider: HOWIE SINGH User: GALILEO KEVIN Electronically signed by Galileo Kevin [facility] at 04/19/2024 5:47 PM EDT documented in this encounter Plan of Treatment Upcoming Encounters Date Type Department Care Team (Latest Contact Info) Description 04/21/2024 4:30 PM EDT Office Visit Sleep Disorders Ctr [facility] 132 [facility] [place] [phone] Noemi Gamez CRNP 132 [facility] [place] [address] 07/22/2024 8:30 AM EDT Office Visit [address] [place] [address] [address] [place] [address] 08/01/2024 8:30 AM EDT Office Visit Urology, [facility] [address] [place] [address] Bhavik Limon MD [address] [address] [place] [address] 08/31/2024 9:00 AM EDT Hospital Encounter ENDO [facility], Endoscopy Room [facility] [address] [place] [phone] Vilma Bell MD [address] [place] [id number] 08/31/2024 9:00 AM EDT - 08/31/2024 10:00 AM EDT Surgery ENDO [facility], Endoscopy Room [facility] [address] [place] [phone] Vilma Bell MD [address] [place] [address] COLONOSCOPY FLEXIBLE PROXIMAL DIAGNOSTIC Scheduled Procedures Name Priority Associated Diagnoses Date/Ti va COLONOSCOPY FLEXIBLE PROXIMA L DIAGNOSTIC GERD (gastroesophageal [...] 2016 Depression Screening 03/10/2020 03/10/2019 COVID-19 Vaccine (2022- season) 2023 Influenza Vaccine (FLU shot) (Season [...] as of this encounter Visit Diagnoses Diagnosis Acute right-sided low back pain without sciatica GERD (gastroesophageal reflux disease) Esophageal reflux Family history of colon cancer Family history of malignant neoplasm of gastrointestinal tract documented in this encounter Advance Directives * Full Code [...] Advance Directives occurred with: Patient Care Teams Airline Pilot/First Officer Relationship Specialty Start Date End Date Howie Singh DO [address] [place] [address] [place] [address] PCP - General Internal Medicine 12/29/23 documented as of this encounter
--- OUTSIDE RECORDS SUMMARY | 2024-06-23 11:17 | External Medical Summary | Summary of Care ---
Author Name Unknown Organization [facility] Address [address] [place] [address] Phone [phone] Care Team Providers Care Exercise Specialist Name Role Phone Nichole García DO Primary Care Provider + [phone] Reason for Visit * Reason Comments Follow Up Sleep Apnea * Evaluate & Treat - Unlimited Visits (Within 30 days (routine)) - Authorized Specialty Diagnoses / Procedures Referred By Justin mahmood Referred To Contact Sleep Medicine / Sleep Disorders Diagnoses Sleep disorder Nichole García DO [address] [place] [address] [place] [address] Referral ID Status Reason Start Date Expiration Date Visits Requested Visits Authorized [id number] Authorized Specialty Services Required 03/28/2024 2 2 Encounter Details Date Type Department Care Team (Late st Contact Info) Description 04/21/2024 4:30 PM EDT Office Visit Sleep Disorders Ctr [facility] 132 [facility] [place] [phone] Noemi Gamez CRNP 132 [facility] [place] [address] MEREDITH (obstructive sleep apnea)* Allergies Active Allergy Reactions Criticality Noted Date Comments No Known Drug Allergy 07/09/2001 documented as of this encounter (statuses as of 04/21/2024) Medications Medication Sig Dispensed Refills Start Date [...] as of this encounter (statuses as of 04/21/2024) Active Problems Problem Noted Date Diagnosed Date CKD (chronic kidney disease), stage II Overview: EGFR 80 Sebaceous cyst 07/16/2017 Primary hypertension 06/09/2016 BPH with obstruction/lower urinary tract symptom s 11/29/2015 Gastroesophageal reflux dise ase with esophagitis without hemorrhage PPD positive BMI 35.0-35.9,adult Overview: 231 lbs Acne vulgaris documented as of this encounter (statuses as of 04/21/2024) Resolved Problems Problem Noted Date Diagnosed Date [...] as of this encounter (statuses as of 04/21/2024) Immunizations Name Administration Dates Next Due Pneumococcal [...] Date Smoking Tobacco: Never Smokeless Tobacco: Never Tobacco Cessation:Counseling Given: Not Answered Alcohol Use Standard Drinks/Week Comments Yes 0 [...] on file documented as of this encounter Last Filed Vital Signs Vital Sign Reading Time Taken Comments Blood Pressure 128/60 04/21/2024 4:29 PM EDT Pulse 101 04/21/2024 4:29 PM EDT Temperature 36.3 C (97.3 F) 04/21/2024 4:29 PM ED T Respiratory Rate 16 04/21/2024 4:29 PM EDT Oxygen Saturation 98% 04/21/2024 4:29 PM EDT Inhaled Oxygen Concentration - - Weight 104.3 kg (230 lb) 04/21/2024 4:29 PM EDT Height 172.7 cm (5' 8") 04/21/2024 4:29 PM EDT Body Mass Index 34.97 04/21/2024 4:29 PM EDT documented in this encounter Progress Notes * Noemi Gamez CRNP - 04/21/2024 4:35 PM EDT [facility] Jeet Gorman is a 58 year old male seen today for initial follow-up after starting auto CPAP for mild MEREDITH. Initially presented for sleep evaluation September 2022 at the request of Cardiology for witnessed apnea, snoring and excessive daytime sleepiness with Madison 11. PSG 08/14/2023 (BMI 34.06): AHI 4% 3.1, RDI 6.4, SpO2 wanda 81% with 7.7 mins <89%, PLMI 79, SE 92%, 11% TST REM Interim History: CPAP used some nights, noting benefit with use. Traveling a lot and not bringing it due to the tankbeing hard to dry. Falls asleep quicker with use. Sleeping sounder, less nocturia. More refreshed on waking. Denies intolerance issues related to treatment. Total sleep time is around 7-8 hours. Sleep is refreshing. Denies daytime sleepiness or dozing at inappropriate times. Denies drowsy driving. Denies symptoms suggestive of RLS. Compliance Data: Report date: last 58 days ending 04/20/2024 % total days used: 64 % days used > 4 hours: 62 Average hours per day used: 6 hours 49 mins Large leak: 14 L/min rAHI: 1.3 Pressures: median 7 cwp, p95% 10.9 cwp Equipment: DME Provider: [employer] Device: [id number] Settings: 4-18 cmH20, 5 min ramp from 4 cm H2O Interface Type: Mirage Quattro Humidifier: used, denies dry mouth Cleaning: By hand routinely Madison Sleepiness Scale Question 04/21/2024 4:31 PM EDT - Filed by Roxana Nino LPN What is the chance you will doze off in the following situation? Sitting and reading No chance of dozing Watching TV Slight chance of dozing Sitting inactive in a public place, such as a theater or meeting No chance of dozing As a passenger in a car for an hour without a break Slight chance of dozing Lying down to rest in the afternoon when circumstances permit No chance of dozing When sitting and talking to someone No chance of dozing When sitting quietly after lunch without alcohol No chance of dozing In a car, while stopped for a few minutes in traffic No chance of dozing Score (range: 0 - 24) 2 Problem List: Patient Active Problem List Diagnosis Gastroesophageal reflux disease with esophagitis without hemorrhage PPD positive BMI 35.0-35.9,adult BPH with obstruction/lower urinary tract symptoms Acne vulgaris Primary hypertension Sebaceous cyst CKD (chronic kidney disease), stage II Current Medications: Current Outpatient Medications Medication Sig Dispense Refill Lisinopril 10 MG Oral Tablet (Prinivil) TAKE 1 TABLET BY MOUTH EVERY DAY IN THE MORNING 90 Tablet 2 Omeprazole 20 MG Oral Capsule Delayed Release (PriLOSEC) TAKE 2 CAPSULES BY MOUTH EVERY DAY 180 Capsule 1 Tadalafil 5 MG Oral Tablet (Cialis) Take 1 Tablet by mouth in the morning. 90 Tablet 3 Clindamycin Phosphate 1 % External Solution USE DIRECTED TWICE A DAY 60 mL 1 Tretinoin Microsphere 0.1 % External Gel Apply topically to affected area daily. apply to acne. 20 g 5 aspirin 81 MG chewable tablet Take 1 Tablet by mouth in the morning. No current facility-administered medications for this visit. Physical Exam: BP 128/60 | Pulse 101 | Temp 36.3 C (97.3 F) (Tympanic) | Resp 16 | Ht 1.727 m (5' 8") | Wt 104.3 kg (230 lb) | SpO2 98% | BMI 34.97 kg/m | BSA 2.24 m Constitutional: Alert, oriented and in no acute distress Skin: No abnormal mask markings on face Cardio: Regular rate and rhythm, no murmur Chest: Normal respiratory effort at rest Neuro: Fluent speech Psych: Appropriate mood and affect. Assessment & Plan: Mild obstructive sleep apnea based on RDI criteria associated with hypoxemia and excessive daytime sleepiness. CPAP compliance achieved but overall usage has been low due to not taking it with him when he travels. Advised to try CPAP without the distilled water to see if he can tolerate it. This way he can more easily travel with it. Also suggesting the option of purchasing a travel CPAP unit. With CPAP use he does notice benefit with treatment. Changed to 7-18 cm H2O Continue use of CPAP to include all periods of sleep opportunity. Routine cleaning and change of supplies as needed was encouraged. Continue to avoid engaging in activities that require full alertness when feeling sleepy or tired. SANDY [facility] I spent a total of 30-39 minutes (exact time 35 mins) on the date of service in preparation, delivery, and documentation of the care provided to Jeet Gorman excluding any time spent in the performance of separately billed services. documented in this encounter Nursing Notes * Roxana Nino LPN - 04/21/2024 4:32 PM EDT Chief Complaint Patient presents with Follow Up Sleep Apnea Cpap DME: [employer] Madison Sleepiness Scale Question 04/21/2024 4:31 PM EDT - Filed by Roxana Nino LPN What is the chance you will doze off in the following situation? Sitting and reading No chance of dozing Watching TV Slight chance of dozing Sitting inactive in a public place, such as a theater or meeting No chance of dozing As a passenger in a car for an hour without a break Slight chance of dozing Lying down to rest in the afternoon when circumstances permit No chance of dozing When sitting and talking to someone No chance of dozing When sitting quietly after lunch without alcohol No chance of dozing In a car, while stopped for a few minutes in traffic No chance of dozing Score (range: 0 - 24) 2 documented in this encounter Plan of Treatment Upcoming Encounters Date Type Department Care Team (Latest Contact Info) Description 07/22/2024 8:30 AM EDT Office Visit [address] [address] Nichole García, [address] [place] [address] [place] [address] 08/01/2024 8:30 AM EDT Office [facility] [place] [address] Bhavik Limon MD [address] [place] [address] 08/31/2024 9:00 AM EDT Hospital Encounter ENDO [facility], Endoscopy Room [facility] 132 [facility] [place] [phone] Vilma Bell MD [address] [place] [address] 08/31/2024 9:00 AM EDT - 08/31/2024 10:00 AM EDT Surgery ENDO [facility], Endoscopy Room [facility] 132 [facility] [place] [phone] Vilma Bell MD [address] [place] [address] COLONOSCOPY FLEXIBLE PROXIMAL DIAGNOSTIC 04/04/2025 10:40 AM EDT Office Visit [facility] Disorders [facility]tr [facility] 132 [facility] [place] [phone] Janie Gorman DO 132 [facility] [place] [address] Scheduled Procedures Name Priority Associated Diagnoses Date/Ti [...] 2016 Depression Screening 03/10/2020 03/10/2019 COVID-19 Vaccine (1 - 2022- season) 2023 Influenza Vaccine (FLU shot) (Season [...] as of this encounter Visit Diagnoses Diagnosis MEREDITH (obstructive sleep apnea)- Primary Obstructive sleep apnea (adult) (pediatric) GERD (gastroesophageal reflux disease) Esophageal reflux Family [...] Advance Directives occurred with: Patient Care Teams Exercise Specialist Relationship Specialty Start Date End Date Nichole García DO [address] [place] [address] [place] [phone] PCP - General Internal Medicine 12/29/23 documented as of this encounter
--- OUTSIDE RECORDS SUMMARY | 2024-06-23 11:18 | External Medical Summary | Summary of Care ---
Author Name Unknown Organization [facility] Address [address] [place] [address] Phone [phone] Care Team Providers Care Patient Access Director Name Role Phone Nichole García Primary Care Provider [phone] Reason for Visit * Reason Onset Date Comments Appointment 03/25/2024 Encounter Details Date Type Department Care Team (Late st Contact Info) Description 03/25/2024 Telephone Gastroenterology, [facility] [address] [place], [place] [address] Services, Scheduling [address] [place] [address] Appointment Allergies Active Allergy Reactions Criticality Noted Date [...] Orr OSA - 03/30/2024 10:29 AM EDT This is a duplicate. Please see encounter dated 03/21/24 03/30/2024 10:29 AM * Telephone Encounter - Naya Zamora OSA - 03/28/2024 10:32 AM EDT Pt calling back pt can be reached at [phone] * Telephone Encounter - Bertha Ferreira OSA - 03/28/2024 9:39 AM EDT Lmm for pt. * Telephone Encounter - Aditi Benjamin OSA - 03/25/2024 3:59 PM EDT Please schedule for colonoscopy documented in this encounter Plan of Treatment Upcoming Encounters Date Type Department Care Team (Latest Contact Info) Description 05/24/2024 3:40 PM EDT Office Visit [facility] [address] [place] [phone] Janie Gorman 132 [facility] [place] [address] 07/22/2024 8:30 AM EDT Office Visit Family Medicine [address] [place] [address] Nichole García [address] [place] [address] 08/01/2024 8:30 AM EDT Office Visit Urology, [facility] [address] [place] [address] Bhavik Limon MD [address] [address] [place] [address] 08/31/2024 9:00 AM EDT Hospital Encounter ENDO [facility], Endoscopy Room [facility] [address] [place] [phone] Vilma Bell MD 310 [facility] [place] [id number] 08/31/2024 9:00 AM EDT - 08/31/2024 10:00 AM EDT Surgery ENDO [facility], Endoscopy Room [facility] 132 [facility] [place] [phone] Vilma Bell MD [address] [place] [address] COLONOSCOPY FLEXIBLE PROXIMAL DIAGNOSTIC Scheduled Procedures [...] filedocumented as of this encounter Advance Directives Latest Code Status [...] Advance Directives occurred with: Patient Care Teams Patient Access Director Relationship Specialty Start Date End Date Nichole García DO [address] [place] [address] [place] [address] PCP - General Internal Medicine 12/29/23 documented as of this encounter
--- OUTSIDE RECORDS SUMMARY | 2024-06-23 11:18 | External Medical Summary | Summary of Care ---
Author Name Unknown Organization [facility] Address [address] [place] [address] Phone [phone] Care Team Providers Care Speech Pathology Assistant Name Role Phone Nichole García Primary Care Provider [phone] Reason for Visit * Reason Onset Date Comments Appointment 03/25/2024 Encounter Details Date Type Department Care Team (Late st Contact Info) Description 03/25/2024 Telephone Gastroenterology, [facility] [address] [place], [place] [phone] Services, Scheduling [address] [place] [address] Appointment Allergies Active Allergy Reactions Criticality Noted Date Comments No Known Drug Allergy 07/09/2001 documented as of this encounter (statuses as of 03/28/2024) Medications Medication Sig Dispensed Refills Start Date [...] as of this encounter (statuses as of 03/28/2024) Active Problems Problem Noted Date Diagnosed Date CKD (chronic kidney disease), stage II Overview: EGFR 80 Sebaceous cyst 07/16/2017 Primary hypertension 06/09/2016 BPH with obstruction/lower urinary tract symptom s 11/29/2015 Gastroesophageal reflux dise ase with esophagitis without hemorrhage PPD positive BMI 35.0-35.9,adult Overview: 231 lbs Acne vulgaris documented as of this encounter (statuses as of 03/28/2024) Resolved Problems Problem Noted Date Diagnosed Date [...] as of this encounter (statuses as of 03/28/2024) Immunizations Name Administration Dates Next Due Pneumococcal [...] encounter Miscellaneous Notes * Telephone Encounter - Naya Zamora OSA - 03/28/2024 10:32 AM EDT Pt calling back pt can be reached at [phone] * Telephone Encounter - Bertha Ferreira OSA - 03/28/2024 9:39 AM EDT Lmm for pt. * Telephone Encounter - Aditi Benjamin OSA - 03/25/2024 3:59 PM EDT Please schedule for colonoscopy documented in this encounter Plan of Treatment Upcoming Encounters Date Type Department Care Team (Latest Contact Info) Description 04/05/2024 8:00 AM EDT Hospital Encounter ENDO [facility], Endoscopy Room [facility] [address] [place] [phone] Alberta Iglesias, DO [address] [place] [address] 04/05/2024 8:00 AM EDT - 04/05/2024 8:30 AM EDT Surgery ENDO [facility], Endoscopy Room [facility] [address] [place] [phone] Alberta Iglesias, DO [address] [place] [address] ESOPHAGOGASTRODUODENOSCOPY (EGD), FLEXIBLE, TRANSORAL, DIAGNOSTIC 05/24/2024 3:40 PM EDT Office Visit Sleep Disorders Ctr [facility] 132 [facility] [place] [phone] Janie Gorman, 132 [facility] [place] [address] 07/22/2024 8:30 AM EDT Office Visit Family Medicine [address] [place] [phone] Nichole García [address] [place] [address] 08/01/2024 8:30 AM EDT [facility] [address] [place] [address] Bhavik Limon MD [address] [address] [place] [phone] Scheduled Procedures Name Priority Associated Diagnoses Date/Ti me ESOPHAGOGASTRODUODENOSCOPY ( EGD), FLEXIBLE, TRANSORAL, DIAGNOSTIC GERD (gastroesophageal reflux disease) 04/05/2024 8:00 AM EDT COLONOSCOPY FLEXIBLE PROXIMA L DIAGNOSTIC Recall Colon cancer screening Health Maintenance Due Date Last Done Comments Hepatitis B (1 of 3 - 19+ 3-dose series) 1985 Cologuard 2011 Fecal Occult Blood Test 2011 Sigmoidoscopy 2011 Zoster Vaccines (1 of 2) 2016 Depression Screening 03/10/2020 03/10/2019 COVID-19 Vaccine ( - 2022- season) 2023 Influenza Vaccine (FLU shot) (Season Ended) 2024 10/20/2018, 11/27/2017, 11/12/2016, Additional history exists GFR 11/27/2024 11/27/2023, 2 07/2023, 11/19/2022, Additional history exists Albumin/Creatinine Ratio [...] Advance Directives occurred with: Patient Care Teams Speech Pathology Assistant Relationship Specialty Start Date End Date Nichole García DO [address] [place] [address] [place] [address] PCP - General Internal Medicine 12/29/23 documented as of this encounter
--- OUTSIDE RECORDS SUMMARY | 2024-06-23 11:18 | External Medical Summary | Summary of Care ---
Author Name Unknown Organization [facility] Address [address] [place] [address] Phone [phone] Care Team Providers Care Tube Inspector Name Role Phone Nichole García DO Primary Care Provider + [phone] Reason for Referral * Evaluate & Treat - Unlimited Visits (Within 30 days (routine)) - Authorized Specialty Diagnoses / Procedures Referred By Contfrida t Referred To Contact Sleep Medicine / Sleep Disorders Diagnoses Sleep disorder Nichole García DO [address] [place] [address] [place] [phone] Referral ID Status Reason Start Date Expiration Date Visits Requested Visits Authorized [id number] Authorized Specialty Services Required 03/28/2024 2 2 Question Answer Referral Priority Within 30 days (routine) Where should this appointment be scheduled? [facility] All Other Sleep Conditions Comments Ongoing follow up Reason for Visit * Reason Onset Date Comments Referral 03/23/2024 Encounter Details Date Type Department Care Team (Late st Contact Info) Description 03/23/2024 Telephone Family Medicine [address] [place] [phone] Nichole García DO [address] [place] [address] [place] [phone] Referral Allergies Active Allergy Reactions Criticality Noted [...] as of this encounter Miscellaneous Notes * Addendum Note - Kelley Meneses RN - 03/28/2024 1:54 PM EDTAddended by: KELLEY MENESES on: 03/28/2024 01:54 PM Modules accepted: Orders * Telephone Encounter - Winnie Cardozo OSA - 03/23/2024 12:40 PM EDT Has the patient been seen for this problem? (Y/N)?: yes If No, an appt needs to be scheduled before a referral will be placed (exception: proceed with referral request if referral request is for a yearly routine appointment with speciality) Patient Name: Jeet Gorman Patient Primary care provider: Nichole García, DO Does this need to be an insurance referral (Y/N)?: yes If Yes, does the insurance referral need to be placed into the [employer] system? Name of preferred specialist: Type of specialist: Sleep Disorders Location of specialist: Specialist's Phone #: Specialist's Fax #: Reason for visit: Return Date of visit: 05/24/24 documented in this encounter Plan of Treatment Upcoming Encounters Date Type Department Care Team (Latest Contact Info) Description 04/05/2024 8:00 AM EDT Hospital Encounter ENDO [facility], Endoscopy Room [facility] [address] [place] [address] Alberta Iglesias DO [address] [place] [address] 04/05/2024 8:00 AM EDT - 04/05/2024 8:30 AM EDT Surgery ENDO [facility], Endoscopy Room [facility] [address] [place] [address] Alberta Iglesias, [address] [place] [address] ESOPHAGOGASTRODUODENOSCOPY (EGD), FLEXIBLE, TRANSORAL, DIAGNOSTIC 05/24/2024 3:40 PM EDT Office Visit Sleep Disorders Ctr [facility] 132 [facility] [place] [phone] Janie Gorman, 132 [facility] [place] [address] 07/22/2024 8:30 AM EDT Office Visit Family Medicine [address] [phone] Nichole García, [address] [place] [address] 08/01/2024 8:30 AM EDT Office Visit [facility], [facility] [place] [address] Bhavik Limon MD 27 [facility] [address] [place] [address] Scheduled Procedures Name Priority Associated Diagnoses Date/Ti me ESOPHAGOGASTRODUODENOSCOPY ( EGD), FLEXIBLE, TRANSORAL, DIAGNOSTIC GERD (gastroesophageal reflux disease) 04/05/2024 8:00 AM EDT COLONOSCOPY FLEXIBLE PROXIMA L DIAGNOSTIC Recall Colon cancer screening Scheduled Referrals Name Type Priority Associated Diagnoses Orde r Schedule SLEEP MEDICINE REFERRAL OP Referral Within 30 days (routine) Sleep disorder Ordered: 03/28/2024 Health Maintenance Due Date Last Done Comments Hepatitis B (1 of 3 - 19+ 3-dose series) 1985 Cologuard 2011 Fecal Occult Blood Test 2011 Sigmoidoscopy 2011 Zoster Vaccines (1 of 2) 2016 Depression Screening 03/10/2020 03/10/2019 COVID-19 Vaccine ( - season) 2023 Influenza Vaccine (FLU shot) (Season Ended) 2024 10/20/2018, 11/27/2017, 11/12/2016, Additional history exists GFR 11/27/2024 11/27/2023, 0307/2023, 11/19/2022, Additional history exists Albumin/Creatinine Ratio 03/19/2025 [...] as of this encounter Visit Diagnoses Diagnosis Sleep disorder- Primary Sleep disturbance, unspecified GERD (gastroesophageal reflux disease) Esophageal reflux documented in this encounter Advance Directives Latest [...] Advance Directives occurred with: Patient Care Teams Tube Inspector Relationship Specialty Start Date End Date Nichole García DO [address] [place] [address] [place] [phone] PCP - General Internal Medicine 12/29/23 documented as of this encounter
--- OUTSIDE RECORDS SUMMARY | 2024-06-23 11:19 | External Medical Summary | Summary of Care ---
Author Name Unknown Organization [facility] Address [address] [place] [address] Phone [phone] Care Team Providers Care Braider Setter Name Role Phone Nichole García Primary Care Provider [phone] Reason for Visit * Reason Onset Date Comments Appointment 03/25/2024 Encounter Details Date Type Department Care Team (Late st Contact Info) Description 03/25/2024 Telephone Gastroenterology, [facility] [address] [place], [place] [phone] Services, Scheduling [address] [place] [address] Appointment Allergies Active Allergy Reactions Criticality Noted [...] encounter Miscellaneous Notes * Telephone Encounter - Bertha Ferreira OSA - 03/28/2024 9:39 AM EDT Lmm for pt. * Telephone Encounter - Aditi Benjamin OSA - 03/25/2024 3:59 PM EDT Please schedule for colonoscopy documented in this encounter Plan of Treatment Upcoming Encounters Date Type Department Care Team (Latest Contact Info) Description 04/05/2024 8:00 AM EDT Hospital Encounter [facility], Endoscopy Room [facility] [place] [phone] Alberta Iglesias, DO [address] [place] [address] 04/05/2024 8:00 AM EDT - 04/05/2024 8:30 AM EDT Surgery ENDO [facility], Endoscopy Room [facility] [address] [place] [address] Alberta Iglesias, DO [address] [place] [address] ESOPHAGOGASTRODUODENOSCOPY (EGD), FLEXIBLE, TRANSORAL, DIAGNOSTIC 05/24/2024 3:40 PM EDT Office Visit Sleep Disorders Ctr [facility] [address] [place] [phone] Janie Gorman, DO [address] [place] [address] 07/22/2024 8:30 AM EDT Office Visit [address] [place] [phone] Nichole García[address] [place] [address] 08/01/2024 8:30 AM EDT Office Visit Urology, [facility] 132 [facility] [place] [address] Bhavik Limon MD [address] [place] [address] Scheduled Procedures Name Priority Associated Diagnoses Date/Ti [...] Screening 03/10/2020 03/10/2019 COVID-19 Vaccine (1 - season) 2023 Influenza Vaccine (FLU shot) [...] Advance Directives occurred with: Patient Care Teams Braider Setter Relationship Specialty Start Date End Date Nichole García DO [address] [place] [address] [place] [phone] PCP - General Internal Medicine 12/29/23 documented as of this encounter
--- OUTSIDE RECORDS SUMMARY | 2024-06-23 11:19 | External Medical Summary | Summary of Care ---
Author Name Unknown Organization [facility] Address [address] [place] [address] Phone [phone] Care Team Providers Care Deputy Probation Officer Name Role Phone Nichole García DO Primary Care Provider + [phone] Reason for Visit * Reason Onset Date Comments Health Maintenance 02/17/2024 Encounter Details Date Type Department Care Team (Late st Contact Info) Description 02/17/2024 Telephone Family Medicine [address] [phone] Nichole García [address] [address] Health Maintenance Allergies Active Allergy Reactions Criticality Noted Date Comments No Known Drug Allergy 07/09/2001 documented as of this encounter (statuses as of 02/17/2024) Medications Medication Sig Dispensed Refills Start Date [...] as of this encounter (statuses as of 02/17/2024) Active Problems Problem Noted Date Diagnosed Date CKD (chronic kidney disease), stage II Overview: EGFR 80 Sebaceous cyst 07/16/2017 Primary hypertension 06/09/2016 BPH with obstruction/lower urinary tract symptom s 11/29/2015 Gastroesophageal reflux dise ase with esophagitis without hemorrhage PPD positive BMI 35.0-35.9,adult Overview: 231 lbs Acne vulgaris documented as of this encounter (statuses as of 02/17/2024) Resolved Problems Problem Noted Date Diagnosed Date [...] as of this encounter (statuses as of 02/17/2024) Immunizations Name Administration Dates Next Due Pneumococcal [...] encounter Miscellaneous Notes * Telephone Encounter - Marcela Lantigua LPN - 02/17/2024 9:50 AM EDT Care Gaps Comprehensive Care Outreach Last Office/Telemedicine Visit: 12/29/2023 (in office), Visit date not found (telemedicine) Next Office Visit: 07/22/2024 Hemoglobin AIC Results: Lab Results Component Value Date/Time HEMOGLOBIN A1C - [facility] 5.6 10/05/2019 04:54 PM HEMOGLOBIN A1C - [facility] 5.5 10/19/2018 09:14 AM BP Readings from Last 1 Encounters: 12/29/23 104/58 Reviewed Health Maintenance below: Health Maintenance Topic Date Due Hepatitis B (1 of 3 - 19+ 3-dose series) Never done Zoster Vaccines (1 of 2) Never done Depression Screening 03/10/2020 Influenza Vaccine (FLU shot) (1) 07/24/2023 COVID-19 Vaccine (1 - 2022-24 season) Never done Care Gap Outreach Action Taken: Outreach not indicated documented in this encounter Plan of Treatment Upcoming Encounters Date Type Department Care Team (Latest Contact Info) Description 04/05/2024 8:00 AM EDT Hospital Encounter [facility]O [facility], Endoscopy Room [facility] [address] [place] [address] Alberta Iglesias, DO [address] [place] [address] 04/05/2024 8:00 AM EDT - 04/05/2024 8:30 AM EDT Surgery [facility]O [facility], Endoscopy Room [facility] [address] [place] [phone] Alberta Iglesias, DO [address] [place] [address] ESOPHAGOGASTRODUODENOSCOPY (EGD), FLEXIBLE, TRANSORAL, DIAGNOSTIC 04/19/2024 1:00 PM EDT Office Visit Sleep Disorders Ctr [facility] [address] [place] [phone] Janie Gorman, [address] [place] [address] 07/22/2024 8:30 AM EDT Office Visit Family Medicine [address] [place] [phone] Nichole García [address] [place] [address] 08/01/2024 8:30 AM EDT Office Visit Urology, [facility] [address] [place] [address] Bhavik Limon MD 27 [facility] [address] [place] [address] Scheduled Procedures Name Priority Associated Diagnoses Date/Ti [...] ( season) 2023 Influenza Vaccine (FLU shot) (#1) 2023 10/20/2018, 11/27/2017, 11/12/2016, Additional history exists GFR [...] Advance Directives occurred with: Patient Care Teams Deputy Probation Officer Relationship Specialty Start Date End Date Nichole García DO [address] [place] [address] [place] [address] PCP - General Internal Medicine 12/29/23 documented as of this encounter
--- OUTSIDE RECORDS SUMMARY | 2024-06-23 11:19 | External Medical Summary | Summary of Care ---
Author Name Unknown Organization [facility] Address [address] [place] [address] Phone [phone] Care Team Providers Care Reading Professor Name Role Phone Nichole García DO Primary Care Provider + [phone] Reason for Visit * Reason Onset Date Comments Appointment 12/29/2023 Upper endoscopy Encounter Details Date Type Department Care Team ([facility] st Contact Info) Description 12/29/2023 Telephone Family Medicine [address] [phone] Nichole García DO [address] [place], [place] [address] [address] Appointment (Upper endoscopy ) Allergies Active Allergy Reactions Criticality Noted Date Comments No Known Drug Allergy 07/09/2001 documented as of this encounter (statuses as of 12/30/2023) Medications Medication Sig Dispensed Refills Start Date [...] as of this encounter (statuses as of 12/30/2023) Active Problems Problem Noted Date Diagnosed Date CKD (chronic kidney disease), stage II Overview: EGFR 80 Sebaceous cyst 07/16/2017 Primary hypertension 06/09/2016 BPH with obstruction/lower urinary tract symptom s 11/29/2015 Gastroesophageal reflux dise ase with esophagitis without hemorrhage PPD positive BMI 35.0-35.9,adult Overview: 231 lbs Acne vulgaris documented as of this encounter (statuses as of 12/30/2023) Resolved Problems Problem Noted Date Diagnosed Date [...] as of this encounter (statuses as of 12/30/2023) Immunizations Name Administration Dates Next Due Pneumococcal [...] encounter Miscellaneous Notes * Telephone Encounter - Alma Gonzalez OSA - 12/30/2023 11:56 AM EST Pt scheduled on 04/14/[address] Iglesias * Telephone Encounter - Sharona Kaur OSA - 12/29/2023 12:24 PM EST Jeet needs scheduled for upper endoscopy for: Gastroesophageal reflux disease with esophagitis without hemorrhage [K21.00] - Primary documented in this encounter Plan of Treatment Upcoming Encounters Date Type Department Care Team (Latest Contact Info) Description 04/05/2024 8:00 AM EDT [facility], [facility] Room [facility] [address] [place] [phone] Alberta Iglesias, DO [address] [place] [address] 04/05/2024 8:00 AM EDT - 04/05/2024 8:30 AM EDT Surgery [facility], Endoscopy Room [facility] [address] [place] [phone] Alberta Iglesias, DO [address] [place] [address] ESOPHAGOGASTRODUODENOSCOPY (EGD), FLEXIBLE, TRANSORAL, DIAGNOSTIC 04/19/2024 1:00 PM EDT Office Visit Sleep Disorders Ctr [facility] [address] [place] [phone] Janie Gorman DO [address] [place] [address] 07/22/2024 8:30 AM EDT Office Visit Family Medicine [address] [place] [phone] Nichole García [address] [place] [address] 08/01/2024 8:30 AM EDT Office Visit Urology, [facility] [address] [place] [address] Bhavik Limon MD [address] [place] [address] [place] [address] Scheduled Procedures Name Priority Associated Diagnoses Date/Ti me ESOPHAGOGASTRODUODENOSCOPY ( EGD), FLEXIBLE, TRANSORAL, DIAGNOSTIC GERD (gastroesophageal reflux disease) 04/05/2024 8:00 AM EDT COLONOSCOPY FLEXIBLE PROXIMA L DIAGNOSTIC Recall Colon cancer screening Health Maintenance Due Date Last Done Comments Hepatitis B (1 of 3 - 3-dose series) 1966 COVID-19 Vaccine (#1) 04/17/1967 Cologuard 2011 Fecal Occult Blood Test 2011 Sigmoidoscopy 2011 Zoster Vaccines (1 of 2) 2016 Depression Screening 03/10/2020 03/10/2019 Influenza Vaccine (FLU shot) (#1) 2023 10/20/2018, 11/27/2017, 11/12/2016, Additional history exists GFR 02/19/2024 02/18/2023, 10/24, 05/22/2022, Additional history exists Lipid Panel 05/13/2024 05/13/2019, 09/24, 10/05/2017, Additional history exists Albumin/Creatinine Ratio 03/19/2025 03/19/2022, 03/0 11/2020 Diabetes Screening 02/18/2026 02/18/2023, 0 02/18/2023, 05/22/2022, Additional history exists Colonoscopy 01/01/2027 01/01/2017, 01/01/2017 Colorectal Cancer Screening 01/01/2027 DTaP,Tdap,and Td Vaccines (3 - Td or [...] Advance Directives occurred with: Patient Care Teams Reading Professor Relationship Specialty Start Date End Date Nichole García DO [address] [place] [address] [place] [phone] PCP - General Internal Medicine 12/29/23 documented as of this encounter
--- OUTSIDE RECORDS SUMMARY | 2024-06-23 11:19 | External Medical Summary | Summary of Care ---
Author Name Unknown Organization [facility] Address [address] [place] [address] Phone [phone] Care Team Providers Care Vegetable Canner Name Role Phone Nichole García DO Primary Care Provider + [phone] Encounter Details Date Type Department Care Team (Late st Contact Info) Description 01/04/2024 Orders Only Family Medicine [address] [phone] Nichole García [address] [address] Allergies Active Allergy Reactions Criticality Noted Date Comments No Known Drug Allergy 07/09/2001 documented as of this encounter (statuses as of 01/04/2024) Medications Medication Sig Dispensed Refills Start Date [...] as of this encounter (statuses as of 01/04/2024) Active Problems Problem Noted Date Diagnosed Date CKD (chronic kidney disease), stage II Overview: EGFR 80 Sebaceous cyst 07/16/2017 Primary hypertension 06/09/2016 BPH with obstruction/lower urinary tract symptom s 11/29/2015 Gastroesophageal reflux dise ase with esophagitis without hemorrhage PPD positive BMI 35.0-35.9,adult Overview: 231 lbs Acne vulgaris documented as of this encounter (statuses as of 01/04/2024) Resolved Problems Problem Noted Date Diagnosed Date [...] as of this encounter (statuses as of 01/04/2024) Immunizations Name Administration Dates Next Due Pneumococcal [...] on file documented as of this encounter Plan of Treatment Upcoming Encounters Date Type Department Care Team (Latest Contact Info) Description 04/05/2024 8:00 AM EDT Hospital Encounter [facility], Endoscopy Room [facility] [address] [place] [phone] Alberta Iglesias, [address] [place] [address] 04/05/2024 8:00 AM EDT - 04/05/2024 8:30 AM EDT Surgery [facility], Endoscopy Room [facility] [address] [place] [phone] Alberta Iglesias, [address] [place] [address] ESOPHAGOGASTRODUODENOSCOPY (EGD), FLEXIBLE, TRANSORAL, DIAGNOSTIC 04/19/2024 1:00 PM EDT Office Visit Sleep Disorders Ctr [facility] 132 [facility] [place] [phone] Janie Gorman, 132 [facility] [place] [address] 07/22/2024 8:30 AM EDT Office Visit Family Medicine [address] [place] [phone] Nichole García, [address] [place] [address] 08/01/2024 8:30 AM EDT Office Visit Urology, [facility] 132 [facility] [place] [address] Bhavik Limon MD 27 [facility] [address] [place] [address] Scheduled Procedures Name Priority Associated Diagnoses Date/Ti [...] 11/27/2017, 11/12/2016, Additional history exists GFR 02/19/2024 11/27/2023, 01/22, 11/19/2022, Additional history exists Lipid Panel 05/13/2024 11/27/2023, 06/2 11/2018, 10/19/2018, Additional history exists Albumin/Creatinine Ratio 03/19/2025 03/19/2022, 03/0 11/2020 Diabetes Screening 02/18/2026 11/27/2023, 0 02/18/2023, 02/18/2023, Additional history exists [...] Not on filedocumented as of this encounter Procedures Procedure Name Priority Date/Time Associated Diagnosis Comments HEPATITIS C ANTIBODY Routine 11/27/2023 documented in this encounter Results * HEPATITIS C ANTIBODY (11/27/2023) Blood Venous blood specimen / Unknown 11/27/2023 History Per Patient LAB BLOOD ORDERABLES OUTSIDE LAB (SEE SCANNED REPORT) documented in this encounter Advance Directives Latest [...] Advance Directives occurred with: Patient Care Teams Vegetable Canner Relationship Specialty Start Date End Date Nichole García DO [address] [place] [address] [place] [phone] PCP - General Internal Medicine 12/29/23 documented as of this encounter
--- OUTSIDE RECORDS SUMMARY | 2024-06-23 11:19 | External Medical Summary | Summary of Care ---
Author Name Unknown Organization [facility] Address [address] [place] [address] Phone [phone] Care Team Providers Care Photo Intern Name Role Phone Nichole García DO Primary Care Provider + [phone] Reason for Visit * Reason Onset Date Comments Referral 03/23/2024 Encounter Details Date Type Department Care Team (Late st Contact Info) Description 03/23/2024 Telephone Family Medicine [address] [phone] Nichole García [address] [place] [address] Referral Allergies Active Allergy Reactions Criticality Noted Date Comments No Known Drug Allergy 07/09/2001 documented as of this encounter (statuses as of 03/23/2024) Medications Medication Sig Dispensed Refills Start Date [...] as of this encounter (statuses as of 03/23/2024) Active Problems Problem Noted Date Diagnosed Date CKD (chronic kidney disease), stage II Overview: EGFR 80 Sebaceous cyst 07/16/2017 Primary hypertension 06/09/2016 BPH with obstruction/lower urinary tract symptom s 11/29/2015 Gastroesophageal reflux dise ase with esophagitis without hemorrhage PPD positive BMI 35.0-35.9,adult Overview: 231 lbs Acne vulgaris documented as of this encounter (statuses as of 03/23/2024) Resolved Problems Problem Noted Date Diagnosed Date [...] as of this encounter (statuses as of 03/23/2024) Immunizations Name Administration Dates Next Due Pneumococcal [...] encounter Miscellaneous Notes * Telephone Encounter - Winnie Cradozo, MEREDITH - 03/23/2024 12:40 PM EDT Has the [...] referral need to be placed into the [employer] system? Name of preferred specialist: Type of specialist: Sleep Disorders Location of specialist: Specialist's Phone #: Specialist's Fax #: Reason for visit: Return Date of visit: 05/24/24 documented in this encounter Plan of Treatment Upcoming Encounters Date Type Department Care Team (Latest Contact Info) Description 04/05/2024 8:00 AM EDT Hospital Encounter ENDO [facility], Endoscopy Room [facility] [address] [place] [phone] Alberta Iglesias, DO [address] [place] [address] 04/05/2024 8:00 AM EDT - 04/05/2024 8:30 AM EDT Surgery [facility], Endoscopy Room [facility] [address] [place] [phone] Alberta Iglesias, DO [address] [place] [address] ESOPHAGOGASTRODUODENOSCOPY (EGD), FLEXIBLE, TRANSORAL, DIAGNOSTIC 05/24/2024 3:40 PM EDT Office Visit Sleep Disorders Ctr [facility] [address] [place] [phone] Jnaie Gorman DO [address] [place] [address] 07/22/2024 8:30 AM EDT Office Visit Family Medicine [address] [place] [phone] Nichole García [address] [place] [address] 08/01/2024 8:30 AM EDT Office Visit Urology, [facility] [address] [place] [address] Bhavik Limon MD [address] [place] [address] [place] [phone] Scheduled Procedures Name Priority Associated Diagnoses Date/Ti [...] Advance Directives occurred with: Patient Care Teams Photo Intern Relationship Specialty Start Date End Date Nichole García DO [address] [place] [address] [place] [phone] PCP - General Internal Medicine 12/29/23 documented as of this encounter
--- OUTSIDE RECORDS SUMMARY | 2024-06-23 11:19 | External Medical Summary | Summary of Care ---
Author Name Unknown Organization [facility] Address [address] [place] [address] Phone [phone] Care Team Providers Care Core Dipper Name Role Phone Nichole García DO Primary Care Provider + [phone] Reason for Visit * Reason Comments Cosmetic Procedure Pt presents today fo r destruction of seborrheic hyperplasia. Encounter Details Date Type Department Care Team (Late st Contact Info) Description 12/10/2023 2:30 PM EST Office Visit [facility] Surgery [facility] [address] [place] [address] Brigid Valentin MD [address] [place] [address] Dermal nevus*; Sebaceous hyperplasia of face Allergies Active Allergy Reactions Criticality Noted Date Comments No Known Drug Allergy 07/09/2001 documented as of this encounter (statuses as of 02/22/2024) Medications Medication Sig Dispensed Refills Start Date End Date Status aspirin 81 MG chewable tablet Take 1 Tablet by mouth in the morning. 0 Active Tretinoin Microsphere 0.1 % External GelIndications:A cne vulgaris Apply topically to affected area daily. apply to acne. 20 g 5 2 Active Clindamycin Phosphate 1 % External SolutionIndicati ons:Other acne USE DIRECTED TWICE A DAY 60 mL 1 3 Active Omeprazole 20 MG Oral Capsule Delayed Release (PriLOSEC)Indica tions:Esophageal reflux TAKE 2 CAPSULES BY MOUTH EVERY DAY 180 Capsule 1 3 Active Lisinopril 10 MG Oral Tablet (Prinivil)Indica tions:Acute right-sided low back pain without sciatica TAKE 1 TABLET BY MOUTH EVERY DAY IN THE MORNING 90 Tablet 2 3 Active Meloxicam 15 MG Oral TabletIndication s:Peripheral tear of medial meniscus of left knee as current injury, subsequent encounter Take by mouth 1 Tablet in the morning. for pain.. 30 Tablet 5 2 12/29/19 24 Discontinued Tadalafil 5 MG Oral Tablet (Cialis) Take 1 Tablet by mouth daily as needed for Erectile Dysfunction. 90 Tablet 3 4 12/29/19 24 Discontinued(Ref ill) documented as of this encounter (statuses as of 02/22/2024) Active Problems Problem Noted Date Diagnosed Date CKD (chronic kidney disease), stage II 2 Overview: EGFR 80 Sebaceous cyst 07/16/2017 Primary hypertension 06/09/2016 BPH with obstruction/lower urinary tract symptom s 11/29/2015 Gastroesophageal reflux dise ase with esophagitis without hemorrhage PPD positive BMI 35.0-35.9,adult Overview: 231 lbs Acne vulgaris documented as of this encounter (statuses as of 02/22/2024) Resolved Problems Problem Noted Date Diagnosed Date [...] as of this encounter (statuses as of 02/22/2024) Immunizations Name Administration Dates Next Due Pneumococcal [...] on file documented as of this encounter Progress Notes * Brigid Valentin MD - 12/10/2023 2:19 PM EST Sebaceous hyperplasia on cheeks, forehead, nose. Destruction of benign lesions (electrodessication and curretage). The procedure, risks, benefits, alternatives and expected outcomes were discussed with the patient and verbal consent was obtained. Patient identified, procedure verified, site identified and verified. Confirmed immediately prior to procedure. Area prepped with alcohol and anesthetized using topical lidocaine/tetracaine Electrodessication using epilating needle followed with gentle curretage. Treated numerous lesion, bilateral cheeks/forehead/nose. Patient instructed in routine post-op care. Total number treated: 25 Cost: $319 Patient bothered by a "swelling" on cheek. Discussed cosmetic removal of benign nevus, expected scar and possibility of recurrence. Size of lesion: 0.7 cm Shave of the lesion noted above to remove and confirm diagnosis (cosmetic charge). The procedure, risks, benefits, alternatives and expected outcomes were discussed with the patient and consent was obtained. Time out called. Patient identified, procedure verified, site identified and verified. Patient and staff present in agreement. Area prepped with alcohol and anesthetized using 0.5% lidocaine with epinephrine at 1:200,000 concentration. Shave of lesion performed. 20% AlCl and bandaging applied. Specimen sent to pathology. Patient instructed in routine post-op care. Cost: $$584 Yenni Valentin MD documented in this encounter Nursing Notes * Mae Napier LPN - 12/10/2023 2:31 PM EST Chief Complaint Patient presents with Cosmetic Procedure Pt presents today for destruction of seborrheic hyperplasia. documented in this encounter Miscellaneous Notes * Result Encounter Note - Brigid Valentin MD - 12/14/2023 7:45 AM EST A. Skin, right cheek, shave: Benign melanocytic nevus with focal associated fibrosis. (See comment) Comment: The findings are suggestive of focal prior trauma at this site. Clinical correlation is required. Perico Valentin MD * Addendum Note - Angely Rubio TECH - 12/11/2023 2:39 PM ESTAddended by: ANGELY RUBIO on: 12/11/2023 02:39 PM Modules accepted: Orders documented in this encounter Plan of Treatment Upcoming Encounters Date Type Department Care Team (Latest Contact Info) Description 04/05/2024 8:00 AM EDT Hospital Encounter ENDO [facility], Endoscopy Room [facility] [address] [place] [phone] Alberta Iglesias, DO [address] [place] [address] 04/05/2024 8:00 AM EDT - 04/05/2024 8:30 AM EDT Surgery ENDO OSS, Endoscopy Room [facility] [address] [place] [phone] Alberta Iglesias, DO [address] [place] [address] ESOPHAGOGASTRODUODENOSCOPY (EGD), FLEXIBLE, TRANSORAL, DIAGNOSTIC 04/19/2024 1:00 PM EDT Office Visit Sleep Disorders Ctr [facility] [address] [facility] [place] [phone] Janie Gorman, 132 [facility] [place] [address] 07/22/2024 8:30 AM EDT Office Visit Family Medicine [address] [place] [phone] Nichole García [address] [place] [address] 08/01/2024 8:30 AM EDT Office Visit Urology, [facility] [address] [place] [address] Bhavik Limon MD 27 [facility] [address] [place] [address] Scheduled Procedures Name Priority Associated Diagnoses Date/Ti [...] Procedure Name Priority Date/Time Associated Diagnosis Comments DERM IMAGE (SITE) Routine 12/11/2023 Dermal nevus Sebaceous hyperplasia of face SURGICAL PATHOLOGY Routine 12/10/2023 3: 15 PM EST Dermal nevus documented in this encounter Results * DERM IMAGE (SITE) (12/11/2023) 12/11/2023 M Nichole Valentin MD DIGITAL PHOTOGRAPHY * SURGICAL PATHOLOGY (12/10/2023 3:15 PM EST) Final Diagnosis A. Skin, right cheek, shave: Benign melanocytic nevus with focal associated fibrosis. (See comment) Comment: The findings are suggestive of focal prior trauma at this site. Clinical correlation is required. 12/11/2023 2:09 PM EST LABORATORY [facility] Clinical History See Order Comments 12/11/2023 2:09 PM EST LABORATORY [facility] Order Comments Cosmetic pathology charge ($95) Dermal nevus 12/11/2023 2:09 PM EST LABORATORY [facility] Gross Description A. Skin. Received in formalin with a container labeled with "Jeet Jernigan Gorman", "[id number]", "1965" and " right cheek". Received is a 0.9 x 0.7 cm skin shave. The skin surface is white to shaikh shiny and remarkable for a somewhat centrally located ill-defined raised firm zamarripa area measuring 0.4 x 0.4 cm from extending 0.1 cm from the nearest margin. The underlying tissue is inked. The specimen is bisected and submitted in cassette A1. Gross By: MR 12/11/2023 2:09 PM EST LABORATORY [facility] Sign Out Location Pathologist sign out performed at [facility] ([facility])[address] [address]. 12/11/2023 2:09 PM EST LABORATORY [facility] Photographic images and diagrams represent rosas findings in this case; they are not intended to replace a complete review of the final diagnostic report. The following statement applies to Flow Cytometry, Histology, In situ Hybridization Assays and Molecular Genetics. This test was developed and performed at [facility] and its performance characteristics determined by [email or web address]. It has not been cleared or approved by the U.S. Food and Drug Administration. The FDA has determined that such clearance or approval is not necessary. This test is used for clinical purposes. It should not be regarded as investigational or for research. Special stains, including histochemical stains, and studies using immunologic and HANG methodology (where applicable) are performed with appropriate positive and negative control reactions. 12/11/2023 2:09 PM EST LABORATORY [facility] Tissue Skin structure / Unknown 12/10/2023 3:15 PM EST 12/10/2023 3:15 PM EST Comment:Cosmetic pathology charge ($95)Dermal nevus M Nichole Valentin MD LAB PATHOLOGY [facility] LABORATORY [facility] [address] [facility] [place] [address] documented in this encounter Visit Diagnoses Diagnosis Dermal nevus- Primary Benign neoplasm of skin, site unspecified Sebaceous hyperplasia of face Other specified disease of sebaceous glands GERD (gastroesophageal reflux disease) Esophageal reflux documented [...] Advance Directives occurred with: Patient Care Teams Core Dipper Relationship Specialty Start Date End Date Nichole García DO [address] [place] [address] [place] [phone] PCP - General Internal Medicine 12/29/23 documented as of this encounter
--- OUTSIDE RECORDS SUMMARY | 2024-06-23 11:19 | External Medical Summary | Summary of Care ---
Author Name Unknown Organization [facility] Address [address] [place] [address] Phone [phone] Care Team Providers Care Air Analysis Technician Name Role Phone GarcíaAmyNichole Meli SAENZ Primary Care Provider + [phone] Reason for Visit * Reason Onset Date Comments Fax 01/20/2024 Encounter Details Date Type Department Care Team (Late st Contact Info) Description 01/20/2024 Telephone Family Medicine [address] [phone] Rosy [place] DO [address] [place] [address] Fax Allergies Active Allergy Reactions Criticality Noted Date Comments No Known Drug Allergy 07/09/2001 documented as of this encounter (statuses as of 01/20/2024) Medications Medication Sig Dispensed Refills Start Date [...] as of this encounter (statuses as of 01/20/2024) Active Problems Problem Noted Date Diagnosed Date CKD (chronic kidney disease), stage II Overview: EGFR 80 Sebaceous cyst 07/16/2017 Primary hypertension 06/09/2016 BPH with obstruction/lower urinary tract symptom s 11/29/2015 Gastroesophageal reflux dise ase with esophagitis without hemorrhage PPD positive BMI 35.0-35.9,adult Overview: 231 lbs Acne vulgaris documented as of this encounter (statuses as of 01/20/2024) Resolved Problems Problem Noted Date Diagnosed Date [...] as of this encounter (statuses as of 01/20/2024) Immunizations Name Administration Dates Next Due Pneumococcal [...] encounter Miscellaneous Notes * Telephone Encounter - Anyi Lacy LPN - 01/20/2024 3:36 PM EST Initial note faxed to the number provided. * Telephone Encounter - Chantelle Quarles RN - 01/20/2024 9:35 AM EST Caller requesting the following information to be faxed: Name/Company of caller: [employer] Information requested to be faxed: Clinical notes showing reason for sleep study needed for prior authorization for CPAP order. Fax number: [phone] Attention to Name/Company: N/A Any additional information?: Please contact pt once completed. documented in this encounter Plan of Treatment Upcoming Encounters Date Type Department Care Team (Latest Contact Info) Description 04/05/2024 8:00 AM EDT Hospital Encounter ENDO [facility], Endoscopy Room [facility] [address] [place] [phone] Alberta Iglesias, DO [address] [place] [address] 04/05/2024 8:00 AM EDT - 04/05/2024 8:30 AM EDT Surgery ENDO [facility], Endoscopy Room [facility] [address] [place] [phone] Alberta Iglesias, DO [address] [place] [address] ESOPHAGOGASTRODUODENOSCOPY (EGD), FLEXIBLE, TRANSORAL, DIAGNOSTIC 04/19/2024 1:00 PM EDT Office Visit Sleep Disorders Ctr [facility] [address] [place] [phone] Janie Gorman, 132 [facility] [place] [address] 07/22/2024 8:30 AM EDT Office Visit Family Medicine [address] [place] [phone] Nichole García [address] [place] [address] 08/01/2024 8:30 AM EDT Office Visit Urology, [facility] [address] [place] [address] Bhavik Limon MD [address] [place] [address] [place] [address] Scheduled Procedures Name Priority Associated Diagnoses Date/Ti [...] (2022- season) 2023 Influenza Vaccine (FLU shot) (#1) [...] Advance Directives occurred with: Patient Care Teams Air Analysis Technician Relationship Specialty Start Date End Date Nichole García DO [address] [place] [address] [place] [phone] PCP - General Internal Medicine 12/29/23 documented as of this encounter
--- OUTSIDE RECORDS SUMMARY | 2024-06-23 11:19 | External Medical Summary | Summary of Care ---
Author Name Unknown Organization [facility] Address [address] [place] [address] Phone [phone] Care Team Providers Care Sandblaster Stone Name Role Phone Nichole García DO Primary Care Provider + [phone] Encounter Details Date Type Department Care Team (Late st Contact Info) Description 01/04/2024 Orders Only Family Medicine [address] [phone] Nichole García [address] [address] Allergies Active Allergy Reactions Criticality Noted Date [...] EDT Hospital Encounter ENDO [facility]SS[facility], Endoscopy Room [facility] [address] [place] [phone] Alberta Iglesias, [address] [place] [address] 04/05/2024 8:00 AM EDT - 04/05/2024 8:30 AM EDT Surgery ENDO [facility], Endoscopy Room [facility] [address] [place] [phone] Alberta Iglesias, [address] [place] [address] ESOPHAGOGASTRODUODENOSCOPY (EGD), FLEXIBLE, TRANSORAL, DIAGNOSTIC 04/19/2024 1:00 PM EDT Office Visit Sleep Disorders Ctr [facility] [address] [facility] [place] [phone] Janie Gorman, 132 [facility] [place] [address] 07/22/2024 8:30 AM EDT Office Visit Family Medicine [address] [place] [phone] Nichole García, [address] [place] [address] 08/01/2024 8:30 AM EDT Office Visit Urology, [facility] [address] [facility] [place] [address] Bhavik Limon MD 27 [facility] [address] [place] [address] Scheduled Procedures Name Priority Associated Diagnoses Date/Ti [...] Additional history exists Lipid Panel 05/13/2024 11/27/2023, 04/24, 10/19/2018, Additional history exists Albumin/Creatinine Ratio 03/19/2025 03/19/2022, 03/11/2020 Diabetes Screening 02/18/2026 11/27/2023, 0 02/18/2023, 02/18/2023, [...] Procedure Name Priority Date/Time Associated Diagnosis Comments CHEMISTRY-OUTSIDE Routine 11/27/2023 documented in this encounter Results * (ABNORMAL) CHEMISTRY-OUTSIDE (11/27/2023) Not all results display below - see scan for full detail OUTSIDE LAB (SEE SCANNED REPORT) Comment:SCAN INCLUDES: V.A. LABS - LIPID, CHEM, A1C, CBCD, HEP B, HEP A, HEP B CORE, HEP C AB CREATININE-OUTSID E LAB 1.1 0.6 - 1.5 MG/DL OUTSIDE LAB (SEE SCANNED REPORT) EGFR-OUTSIDE LAB 73.3 ML/MIN/1.7 3M2 OUTSIDE LAB (SEE SCANNED REPORT) POTASSIUM-OUTSIDE LAB 4.7 3.6 - 5.1 MMOL/L OUTSIDE LAB (SEE SCANNED REPORT) GLUCOSE-OUTSIDE LAB 105(A) 70 - 99 MG/DL OUTSIDE LAB (SEE SCANNED REPORT) HOURS FASTING OUTSID E LAB (SEE SCANNED REPORT) TRIGLYCERIDES-OUT SIDE LAB 81 <=150 MG/DL OUTSIDE LAB (SEE SCANNED REPORT) CHOLESTEROL-OUTSI DE LAB 155 <=200 MG/DL OUTSIDE LAB (SEE SCANNED REPORT) HDL-OUTSIDE LAB 39.7(A) 40 - 60 MG/DL OUTSIDE LAB (SEE SCANNED REPORT) CHOL/HDL RATIO-OUTSIDE LAB OUTSIDE LA B (SEE SCANNED REPORT) LDL (CALCULATED)-OUTS TUNDE LAB 99 5 - 100 MG/DL OUTSIDE LAB (SEE SCANNED REPORT) LDL (DIRECT MEASURE)-OUTSIDE LAB OUTSIDE LAB (SEE SCANNED REPORT) HEMOGLOBIN, D6X-SNSFLYK LAB 5.1 4.3 - 6.2 % OUTSIDE LAB (SEE SCANNED REPORT) PHOSPHORUS-OUTSID E LAB OUTSIDE LAB (SEE SCANNED REPORT) PTH-OUTSIDE LAB OUTS TUNDE LAB (SEE SCANNED REPORT) MICROALBUMIN RATIO-OUTSIDE LAB OUTSIDE LA B (SEE SCANNED REPORT) PROTEIN, UA-OUTSIDE LAB OUTSIDE LAB (SEE SCANNED REPORT) HEMOGLOBIN-OUTSID E LAB 15.6 12.4 - 17.3 G/DL OUTSIDE LAB (SEE SCANNED REPORT) 11/27/2023 History Per Patient LABORATORY OUTSIDE LAB (SEE SCANNED REPORT) documented in [...] Advance Directives occurred with: Patient Care Teams Sandblaster Stone Relationship Specialty Start Date End Date Nichole García DO [address] [place] [address] [place] [address] PCP - General Internal Medicine 12/29/23 documented as of this encounter
--- OUTSIDE RECORDS SUMMARY | 2024-06-23 11:19 | External Medical Summary | Summary of Care ---
Author Name Unknown Organization [facility] Address [address] [place] [address] Phone [phone] Care Team Providers Care Roaster Helper Name Role Phone Nichole García DO Primary Care Provider + [phone] Reason for Visit * Reason Onset Date Comments Fax 01/19/2024 Encounter Details Date Type Department Care Team (Late st Contact Info) Description 01/19/2024 Telephone Family Medicine [address] [phone] Nichole García [address] [place] [address] Fax Allergies Active Allergy Reactions Criticality Noted [...] encounter Miscellaneous Notes * Telephone Encounter - Chantelle Quarles RN - 01/20/2024 9:34 AM EST Ordered by sleep medicine , will defer to them * Telephone Encounter - Patricia Amanda OSA - 01/19/2024 9:29 AM EST Caller requesting the following information to be faxed: Name/Company of caller: [employer] Information requested to be faxed: Clinical notes showing reason for sleep study needed for prior authorization for CPAP order. Fax number: [phone] Attention to Name/Company: N/A Any additional information?: Please contact pt once completed. documented in this encounter Plan of Treatment Upcoming Encounters Date Type Department Care Team (Latest Contact Info) Description 04/05/2024 8:00 AM EDT Hospital Encounter ENDO [facility], Endoscopy Room [facility] [address] [place] [phone] Alberta Iglesias, DO [address] [place] [address] 04/05/2024 8:00 AM EDT - 04/05/2024 8:30 AM EDT Surgery ENDO [facility], Endoscopy Room [facility] [address] [place] [phone] Alberta Iglesias, DO [address] [place] [address] ESOPHAGOGASTRODUODENOSCOPY (EGD), FLEXIBLE, TRANSORAL, DIAGNOSTIC 04/19/2024 1:00 PM EDT Office Visit Sleep Disorders Ctr [facility] [address] [place] [phone] Janie Gorman, [address] [place] [address] 07/22/2024 8:30 AM EDT Office Visit Family Medicine [address] [place] [phone] Nichole García [address] [place] [address] 08/01/2024 8:30 AM EDT Office Visit Urology, [facility] [address] [place] [address] Bhavik Limon MD [address] [place] [address] [place] [phone] Scheduled Procedures Name Priority Associated Diagnoses Date/Ti [...] Advance Directives occurred with: Patient Care Teams Roaster Helper Relationship Specialty Start Date End Date Nichole García DO [address] [place] [address] [place] [phone] PCP - General Internal Medicine 12/29/23 documented as of this encounter
--- OUTSIDE RECORDS SUMMARY | 2024-06-23 11:19 | External Medical Summary | Summary of Care ---
Author Name Unknown Organization [facility] Address [address] [place] [address] Phone [phone] Care Team Providers Care Hose Tender Name Role Phone GarcíaNichole velasquez Primary Care Provider [phone] Encounter Details Date Type Department Care Team (Late st Contact Info) Description 12/30/2023 Orders Only PATIENT PORTAL DO NOT DELETE THIS DEPT USED BY [place] [id number] Allergies Active Allergy Reactions Criticality Noted Date [...] EDT Hospital Encounter ENDO [facility], Endoscopy Room [facility] [address] [place] [phone] Alberta Iglesias, [address] [place] [address] 04/05/2024 8:00 AM EDT - 04/05/2024 8:30 AM EDT Surgery ENDO [facility], Endoscopy Room [facility] [address] [place] [phone] Alberta Iglesias, [address] [place] [address] ESOPHAGOGASTRODUODENOSCOPY (EGD), FLEXIBLE, TRANSORAL, DIAGNOSTIC 04/19/2024 1:00 PM EDT Office Visit Sleep Disorders Ctr [facility] [address] [facility] [place] [phone] Janie Gorman, 132 [facility] [place] [address] 07/22/2024 8:30 AM EDT Office Visit Family Medicine [address] [place] [phone] Nichole García, [address] [place] [address] 08/01/2024 8:30 AM EDT Office Visit Urology, [facility] [address] [place] [address] Bhavik Limon MD 27 [facility] [address] [place] [phone] Scheduled Procedures Name Priority Associated Diagnoses Date/Ti [...] Additional history exists Albumin/Creatinine Ratio 03/19/2025 03/19/2022, 2021 Diabetes Screening 02/18/2026 02/18/2023, 0 02/18/2023, 05/22/2022, [...] Advance Directives occurred with: Patient Care Teams Hose Tender Relationship Specialty Start Date End Date Nichole García DO [address] [place] [address] [place] [address] PCP - General Internal Medicine 12/29/23 documented as of this encounter
--- OUTSIDE RECORDS SUMMARY | 2024-06-23 11:20 | External Medical Summary | Summary of Care ---
Author Name Unknown Organization [facility] Address [address] [place] [address] Phone [phone] Care Team Providers Care Ux Information Architect Name Role Phone Nichole García DO Primary Care Provider + [phone] Reason for Visit * Reason Onset Date Comments Appointment 12/29/2023 Upper endoscopy Encounter Details Date Type Department Care Team ([facility] st Contact Info) Description 12/29/2023 Telephone Family Medicine [address] [phone] Nichole García DO [address] [place], [place] [address] [address] Appointment (Upper endoscopy ) Allergies Active Allergy Reactions Criticality Noted Date Comments No Known Drug Allergy 07/09/2001 documented as of this encounter (statuses as of 12/29/2023) Medications Medication Sig Dispensed Refills Start Date [...] as of this encounter (statuses as of 12/29/2023) Active Problems Problem Noted Date Diagnosed Date CKD (chronic kidney disease), stage II Overview: EGFR 80 Sebaceous cyst 07/16/2017 Primary hypertension 06/09/2016 BPH with obstruction/lower urinary tract symptom s 11/29/2015 Gastroesophageal reflux dise ase with esophagitis without hemorrhage PPD positive BMI 35.0-35.9,adult Overview: 231 lbs Acne vulgaris documented as of this encounter (statuses as of 12/29/2023) Resolved Problems Problem Noted Date Diagnosed Date [...] as of this encounter (statuses as of 12/29/2023) Immunizations Name Administration Dates Next Due Pneumococcal [...] encounter Miscellaneous Notes * Telephone Encounter - Sharona Kaur OSA - 12/29/2023 12:24 PM EST Jeet needs scheduled for upper endoscopy for: Gastroesophageal reflux disease with esophagitis without hemorrhage [K21.00] - Primary documented in this encounter Plan of Treatment Upcoming Encounters Date Type Department Care Team (Late st Contact Info) Description 04/19/2024 1:00 PM EDT Office Visit [facility] [address] [place] [phone] Janie Gorman DO [address] [place] [address] 07/22/2024 8:30 AM EDT Office Visit Family Medicine [address] [place] [phone] Nichole García[address] [place] [address] 08/01/2024 8:30 AM EDT Office Visit Urology, [facility] [address] [place] [address] Bhavik Limon MD [address] [facility] [address] [place] [address] Scheduled Procedures Name Priority Associated Diagnoses Date/Ti me COLONOSCOPY FLEXIBLE PROXIMAL DIAGNOSTIC Recall Colon cancer screening Health Maintenance [...] Ratio 03/19/2025 03/19/2022, 03/11/2020 Diabetes Screening 02/18/2026 02/18/2023, 0 02/18/2023, 05/22/2022, [...] Advance Directives occurred with: Patient Care Teams Ux Information Architect Relationship Specialty Start Date End Date Nichole García DO [address] [place] [address] [place] [id number] PCP - General Internal Medicine 12/29/23 documented as of this encounter
--- OUTSIDE RECORDS SUMMARY | 2024-06-23 11:20 | External Medical Summary | Summary of Care ---
Author Name Unknown Organization [facility] Address [address] [place] [address] Phone [phone] Care Team Providers Care Sql Tech Name Role Phone Nichole García DO Primary Care Provider + [phone] Reason for Referral * Ancillary Services (Within 10 days (routine)) - Authorized Specialty Diagnoses / Procedures Referred By Contac t Referred To Contact Gastroenterology Diagnoses Gastroesophageal reflux disease with esophagitis without hemorrhage Nichole García [address] [place] [address] Referral ID Status Reason Start Date Expiration Date Visits Requested Visits Authorized [id number] Authorized Ancillary Services Required 12/29/2023 999 999 Question Answer Referral Priority Within 10 days (routine) Where should this appointment be scheduled? [facility] Upper Endoscopy ASGE Guidelines Esophageal reflux symptoms that are persistent or recurrent despite appropriate therapy ADDITIONAL INFORMATION 1. Is the patient on Coumadin? No 2. Is the patient on Pradaxa? No Reason for Visit * Reason Comments NEW PATIENT Former pt of Dr. Virgen mayfield. Pt would like to discuss when he is due for his colonoscopy and CXR. Encounter Details Date Type Department Care Team (Latest Contact Info) Description 12/29/2023 11:10 AM EST Office Visit Family Medicine [address] [place] [phone] Nichole García [address] [place] [address] Gastroesophageal reflux disease with esophagitis without hemorrhage*; BPH with obstruction/lower urinary tract symptoms; Primary hypertension; Arthritis of left knee; USP current use of therapeutic drug; Lipid screening; Elevated parathyroid hormone; PPD positive Allergies Active Allergy Reactions Criticality Noted Date [...] THE MORNING 90 Tablet 2 3 Active Tadalafil 5 MG Oral Tablet (Cialis)Indicati ons:BPH with obstruction/lowe r urinary tract symptoms Take 1 Tablet by mouth in the morning. 90 Tablet 3 4 Active Meloxicam 15 MG Oral TabletIndication s:Peripheral [...] Sign Reading Time Taken Comments Blood Pressure 104/58 12/29/2023 11:07 AM EST Pulse 96 12/29/2023 11:07 AM EST Temperature 36.2 C (97.1 F) 12/29/2023 1 1:07 AM EST Respiratory Rate - - Oxygen Saturation 92% 12/29/2023 11: 07 AM EST Inhaled Oxygen Concentration - - Weight 108.1 kg (238 lb 6.4 oz) 024 11:07 AM EST Height - - Body Mass Index 36.25 12/15/2023 1:43 PM EST documented in this encounter Progress Notes * Nichole García, - 12/29/2023 11:14 AM EST Subjective: Jeet Gorman is a 58 year old male. Chief Complaint Patient presents with NEW PATIENT Former pt of Dr. Shahid. Pt would like to discuss when he is due for his colonoscopy and CXR. HPI: Jeet Gorman presents today to establish care. He is a former patient of Dr. Shahid. He gets annual CXR for a history of positive PPD, 30+ years ago. He denies cough, shortness of breath. He is due for colonoscopy in 2026. He denies bowel problems other than a little more constipation than usual over the past few months. BP is well controlled on lisinopril. Rare lightheadedness or dizziness. He was on meloxicam but stopped this after his left knee replacement last year. It was done by at [facility]. He is on omeprazole BID for his heartburn. He has an incompetent LES. Had an endoscopy 20+ years ago which showed that his distal esophagus "looks like hamburger." He also keeps the head of his bed elevated. PMH: Patient Active Problem List Diagnosis Code Gastroesophageal reflux disease with esophagitis without hemorrhage K21.00 PPD positive R76.11 BMI 35.0-35.9,adult Z68.35 BPH with obstruction/lower urinary tract symptoms N40.1, N13.8 Acne vulgaris L70.0 Primary hypertension I10 Sebaceous cyst L72.3 CKD (chronic kidney disease), stage II N18.2 Arthritis of left knee M17.12 Current Outpatient Medications Medication Sig Dispense Refill aspirin 81 MG chewable tablet Take 1 Tablet by mouth in the morning. Tretinoin Microsphere 0.1 % External Gel Apply topically to affected area daily. apply to acne. 20 g 5 Clindamycin Phosphate 1 % External Solution USE DIRECTED TWICE A DAY 60 mL 1 Omeprazole 20 MG Oral Capsule Delayed Release (PriLOSEC) TAKE 2 CAPSULES BY MOUTH EVERY DAY 180 Capsule 1 Lisinopril 10 MG Oral Tablet (Prinivil) TAKE 1 TABLET BY MOUTH EVERY DAY IN THE MORNING 90 Tablet 2 Tadalafil 5 MG Oral Tablet (Cialis) Take 1 Tablet by mouth in the morning. 90 Tablet 3 No current facility-administered medications for this visit. Review of patient's allergies indicates: Allergen Reactions No Known Drug Allergy Objective: BP 104/58 | Pulse 96 | Temp 36.2 C (97.1 F) | Wt 108.1 kg (238 lb 6.4 oz) | SpO2 92% | BMI 36.25 kg/m | BSA 2.28 m General: alert, healthy, no distress, well nourished, and well developed Neck: supple, no adenopathy, thyroid normal size, non-tender, without nodularity Heart: regular rate & rhythm and no murmur Lungs: chest symmetric with normal AP diameter, no chest deformities noted, normal respiratory rateand rhythm, lungs clear to auscultation Abdomen: abdomen soft and non-tender Extremities: no joint deformities, effusion, or inflammation, no edema Neuro Exam: alert & oriented x 3 with fluent speech, no focal motor/sensory deficits, gait normal Skin: skin color, texture, turgor are normal, no rashes or significant lesions ASSESSMENT/PLAN: Gastroesophageal reflux disease with esophagitis without hemorrhage (Primary) - continue omeprazole. He has not had an endoscopy in 20+ years and per his report that study was abnormal. He still getssome breakthrough symptoms despite his use of the PPI/lifestyle changes, so will refer for repeat endoscopy. - UPPER ENDOSCOPY GI REFERRAL OP BPH with obstruction/lower urinary tract symptoms - overall doing okay. Notes urinary frequency. - PSA; Future; Expected date: 12/29/2023 - Tadalafil 5 MG Oral Tablet (Cialis); Take 1 Tablet by mouth in the morning. Primary hypertension - well controlled. Arthritis of left knee - resolved now that he is s/p left TKA USP current use of therapeutic drug - MAGNESIUM; Future; Expected date: 12/29/2023 - VITAMIN B12; Future; Expected date: 12/29/2023 Lipid screening - LIPID PANEL WITH DIRECT LDL IF TG IS HIGH; Future; Expected date: 12/29/2023 Elevated parathyroid hormone - noted when reviewing labs. He denies history of kidney stones or hyperparathyroidism. - PTH; Future; Expected date: 12/29/2023 PPD positive - XR CHEST 2 VIEWS; Future; Expected date: 02/27/2024 Follow-up: Return in about 6 months (around 06/28/2024). | Check-out note: Labs another day. CXR in February. Nichole García DO documented in this encounter Plan of Treatment Upcoming Encounters Date Type Department Care Team (Late st Contact Info) Description 04/19/2024 1:00 PM EDT [facility] [address] [place] [phone] Janie Gorman DO [address] [place] [address] 07/22/2024 8:30 AM EDT Office Visit [address] [phone] Nichole García DO [address] [place] [address] [place] [address] 08/01/2024 8:30 AM EDT Office Visit Urology, [facility] [address] [place] [address] Bhavik Limon MD [address] [facility] [address] [place] [address] Scheduled Orders Name Type Priority Associated Diagnoses Orde r Schedule MAGNESIUM Lab Routine [employer] current use of therapeutic drug Expected: 12/29/2023 (Approximate), Expires: 12/28/2024 VITAMIN B12 Lab Routine USP current use of therapeutic drug Expected: 12/29/2023 (Approximate), Expires: 12/28/2024 LIPID PANEL WITH DIRECT LDL IF TG IS HIGH Lab Routine Lipid screening Expected: 12/29/2023, Expires: 12/29/2024 PTH Lab Routine Elevated parathyroid hormone Expected: 12/29/2023 (Approximate), Expires: 12/28/2024 PSA Lab Routine BPH with obstruction/lower urinary tract symptoms Expected: 12/29/2023 (Approximate), Expires: 12/28/2024 XR CHEST 2 VIEWS Medical Imaging Routine PPD positive Expected: 02/27/2024 (Approximate), Expires: 01/26/2025 Scheduled Procedures Name Priority Associated Diagnoses Date/Ti me COLONOSCOPY FLEXIBLE PROXIMAL DIAGNOSTIC Recall Colon cancer screening Scheduled Referrals Name Type Priority Associated Diagnoses Orde r Schedule UPPER ENDOSCOPY GI REFERRAL OP Referral Within 10 days (routine) Gastroesophageal reflux disease with esophagitis without hemorrhage Ordered: 12/29/2023 Health Maintenance Due Date Last Done Comments [...] as of this encounter Visit Diagnoses Diagnosis Gastroesophageal reflux disease with esophagitis without hemorrhage- Primary BPH with obstruction/lower urinary tract symptoms Hypertrophy of prostate with urinary obstruction and other lower urinary tract symptoms (LUTS) Primary hypertension Unspecified essential hypertension Arthritis of left knee Unspecified arthropathy, lower leg USP current use of therapeutic drug Lipid screening Screening for lipoid disorders Elevated parathyroid hormone Unspecified endocrine disorder PPD positive Nonspecific reaction to tuberculin skin test without active tuberculosis documented in this encounter Advance Directives Latest [...] Advance Directives occurred with: Patient Care Teams Sql Tech Relationship Specialty Start Date End Date Nichole García DO [address] [place] [address] [place] [phone] PCP - General Internal Medicine 12/29/23 documented as of this encounter
[2024-06-23] MEDS: SODIUM CHLORIDE 0.9% 500 ML IV ONE (11:39)
[2024-06-23] MEDS: ONDANSETRON INJ 2 MG/ML 2 ML VIAL ONE (11:54)
--- NOTE | 2024-06-23 11:57 | Ultrasound Report ---
US duplex renal artery HISTORY: 58 years-old Male r/o left renal vein thrombosis acute left-sided flank pain COMPARISON: CT same day TECHNIQUE: Multiple real-time sonographic images of the left renal vasculature was obtained assessing grayscale appearance, color and spectral flow FINDINGS: Left kidney measures 11.9 x 5.8 x 5.4 cm. Patent left renal artery with low resistance waveforms. Mil d left-sided hydronephrosis with 3 mm calculus in the left ureterovesicular junction. Patent renal ve in without thrombus identified. IMPRESSION: 1. Patent left renal artery and vein. 2. Mild left-sided hydronephrosis with 3 mm calculus again noted within the left ureterovesicular arnaldo ction. ACT 112: Negative or not required by law. The above report was generated using voice recognition software. It may contain grammatical, syntax o r spelling errors. Electronically signed by: Joce Hernandez M.D. 06/23/2024 11:55 AM
[2024-06-23 13:38] LABS: Appearance Urine Clear (Clear); Bacteria Urine Automated None Seen (None Seen); Bilirubin Urine Negative (Negative); Blood Urine 1+ (Negative); Cast Urine Automated 0-2 /lpf (0-2); Color Urine Yellow; Epithelial Cell Urine Auto 0-2 /hpf (0-2); Glucose Urine UA Negative (Negative); Ketones Urine 1+ (Negative); Leukocyte Esterase Urine Negative (Negative); Nitrite Urine Negative (Negative); Protein Urine Negative (Negative); Specific Gravity Urine 1.018 (1.000-1.030); Urobilinogen Urine Positive (Negative); WBC Urine Automated 0-5 /hpf (0-5)
[2024-06-23] MEDS: SODIUM CHLORIDE 0.9% 1,000 ML IV ONE (14:55)
[2024-06-23] MEDS: HYDROmorphone INJ 0.5 MG/0.5 ML SYR IV PRN (14:55)
--- NOTE | 2024-06-23 14:57 | History & Physical Report ---
Date of Service June 23, 2024 Assessment & Plan (1) Acute left flank pain: (2) Left ureteral calculus: (3) Bradycardia: (4) Intractable nausea and vomiting: Plan: Left Nephrolithiasis Intractable N/V - Obs on med surg tele - CT abd/pelvis showing 1. Mild left hydroureteronephrosis secondary to a 2 mm stone either within or just beyond the left ureterovesical junction. 2. Right-sided nephrolithiasis. 3. Greater than expected density within the distal left renal vein with mild surrounding fat stranding. The fat stranding is likely due to the left-sided hydronephrosis. However, dedicated duplex ultrasound of the left renal vein is recommended to exclude the less likely possibility of a left renal vein thrombosis. 4. No bowel wall thickening or obstruction. . A 2.5 cm sclerotic focus in the right posterior iliac bone. This is indeterminate but favors a bone island. 6. Colonic diverticulosis. No evidence for acute diverticulitis. - US reviewed showing 1. Patent left renal artery and vein. 2. Mild left-sided hydronephrosis with 3 mm calculus again noted within the left ureterovesicular junction. - Pain control ordered including toradol IV, avoiding narcotics for now. Patient received a total of Toradol 15 mg IV, morphine sulfate 4 mg x 2, and Dilaudid 0.5 mg x 1 in the ER. Possible that increased narcotic medication had caused bradycardia, will monitor on tele - NSS at 150 ml/hr, Flomax added, Strain urine HTN Sinus Bradycardia - Cont home meds of lisinopril, pt is not on beta blockade or other rate controlling meds to have caused bradycardia - May continue baby aspirin DVT ppx: teds, scds Lines: PIV x 1 Diet: HH CODE: FULL Dispo: From home, likely to remain in the hospital x 1-2 days A total of 75 minutes were spent with greater than 50% of that time face to face with the patient, personally reviewing all current laboratories, imaging studies, past medication reconciliation, outpatient chart review, and discussion with specialists to collaborate care for the patient with attending. Please see attending documentation for corrections and/or additions. History of Present Illness Chief Complaint: Abdominal pain, nausea, vomiting Primary Care Provider: David Shahid MD This is a 58-year-old male with PMHx of CKD stage II, hypertension, GERD, MEREDITH on CPAP, who presents to the hospital with acute onset of abdominal pain, nausea and dry heaves which started this morning around 6:30a. Pain in left flank/abdomen and waxes and wanes. Rates it at it's worse an 8 out of 10. Pt initially presented to [place] but was then sent here. He had one kidney stone previously maybe 30 years ago. He feels like he needs to urinate but is not getting much out, denies hematuria. Pt was previously taking finasteride and stopped taking it about 2 years ago and is up in the middle of the night f requently at this time. His girlfriend is present with him at bedside. Pt notes current nausea and is requesting meds. CT scan has revealed a of left-sided 2 mm to 3 mm stone and mild hydroureter onephrosis. Despite IV fluids, morphine, Toradol and Dilaudid in the ER patient's symptoms have not improved and therefore the ER has asked our team to admit the patient. EKG shows sinus bradycardia with HR of 49, he also berny down into the 30s for about 5 minutes while in the ER. Pt denies significant exercise or cardiac training to have caused this, unknown any previous issues with HR, no cardiac complaints. No known tick bites. Pt denies hx of cardiac issues. Surgical Hx: History of knee arthroscopy and repair Colonoscopy Vasectomy Laparoscopic cholecystectomy in 2006 EGD Appendectomy Tonsils and adenoids removed Laparoscopic hernia repair x 2 Family Hx Mother: breast cancer Social Hx: no smoking, tobacco use or ilicit drug use. Drinks 1 alcoholic beverage per week. Allergies Allergy/AdvReac Type Severity Reaction Status Date / Time No Known Allergies Allergy Unverified 06/23/24 11:16 Home Medications Medication Instructions Recorded Confirmed Type aspirin 81 mg capsule 81 mg PO DAILY 06/23/24 06/23/24 History lisinopril 10 mg tablet 10 mg PO DAILY 06/23/24 06/23/24 History omeprazole 20 mg capsule,delayed 40 mg PO DAILY 06/23/24 06/23/24 History release Past Med/Surg History Problem List (Updated 06/23/24 @ 15:30 by Lynn Murphy PA-C) Bradycardia Intractable nausea and vomiting Acute left flank pain (Acute) Left ureteral calculus (Acute) COVID-19 (Acute) Medical History Hypertension Social History Smoking Status: Never smoker Preferred Language: Bur[place]ian Feels Safe at Home: Yes Review of Systems Review of Systems: Constitutional: No fever, sweats or chills Eyes: No diplopia, no worsening or blurred vision ENT: normal hearing, no trouble swallowing Respiratory: No cough, sputum, dyspnea at rest or on exertion Cardiovascular: No chest pain, tightness or palpitations Abdomen: + left sided abdominal/flank pain, +nausea, +vomiting, no diarrhea or constipation : no dysuria or hematuria Musculoskeletal: No joint pain, calf pain, swelling Neurologic: No weakness, numbness/tingling, or balance problems Psychiatric: No anxiety or depression Skin: No rash or itch Physical Exam Physical Exam: General: awake, alert, no apparent distress, white male, BMI 32 Head: Normocephalic, atraumatic ENT: PERRL, EOMI, no pharyngeal exudate, mucous membranes moist Chest: Clear to auscultation, on room air, no adventitious breath sounds Cardiac: sinus, HR in 70s at bedside, noted bradycardiac on EKG and per nursing, no murmur, no JVD, normal peripheral pulses, good capillary refill Abdominal: NABS x 4 quadrants, soft, nondistended, nontender to palpation in Lef t flank, no rebound or guarding Extremities: Normal inspection, no peripheral edema or erythema, calfs nontender to palpation Psych: Normal mood and affect Neuro: AAO x 3, strength intact bilaterally and rated 5/5, no motor deficits, speech is clear, no peripheral sensory deficits Results & Data Results & Data Vital Signs (Past 12 Hours) Vital Signs Pulse Resp BP Pulse Ox O2 Del Method 06/23/24 13:30 50 L 18 120/79 98 06/23/24 13:14 53 L 17 128/85 96 06/23/24 12:30 148/109 H 06/23/24 12:24 63 13 100 06/23/24 12:15 68 18 100 06/23/24 12:09 45 L 17 94 06/23/24 12:00 60 17 137/79 94 06/23/24 11:54 79 23 136/92 98 06/23/24 10:30 79 16 142/89 H 100 06/23/24 10:00 62 17 126/84 94 06/23/24 09:42 60 14 130/88 100 Room Air 06/23/24 09:03 71 06/23/24 09:02 64 20 100 Room Air 06/23/24 09:00 43 L 16 118/85 99 06/23/24 08:43 72 18 130/81 100 Room Air Laboratory Results 06/23/24 06/23/24 13:05 09:00 WBC 4.67 L RBC 5.37 Hgb 15.9 Hct 46.3 MCV 86.2 MCH 29.6 MCHC 34.3 RDW Std Deviation 39.6 RDW Coeff of Joe 12.6 Plt Count 200 MPV 9.0 L Immature Gran % (Auto) 0.4 Neut % (Auto) 50.3 Lymph % (Auto) 34.7 [place] % (Auto) 9.6 Eos % (Auto) 3.9 Baso % (Auto) 1.1 Neut # (Auto) 2.35 Lymph # (Auto) 1.62 [place] # (Auto) 0.45 Eos # (Auto) 0.18 Baso # (Auto) 0.05 Immature Gran # (Auto) 0.02 Sodium 138 Potassium 3.7 Chloride 105 Carbon Dioxide 25 Anion Gap 8 BUN 16 Creatinine 1.07 Est Cr Clr Drug Dosing 86.0 Est GFR ( Amer) 88.8 Est GFR (Non-Af Amer) 76.7 BUN/Creatinine Ratio 15.0 Glucose 137 H Calcium 10.0 Total Bilirubin 2.2 H AST 23 ALT 25 Alkaline Phosphatase 89 Total Protein 7.6 Albumin 4.6 Globulin 3.0 Albumin/Globulin Ratio 1.5 Lipase 26 Urine Color Yellow Urine Appearance Clear Urine pH 6.0 Ur Specific [place] 1.018 Urine Protein Negative Urine Glucose (UA) Negative Urine Ketones 1+ H Urine Blood 1+ H Urine Nitrite Negative Urine Bilirubin Negative Urine Urobilinogen Positive H Ur Leukocyte Esterase Negative Urine WBC (Auto) 0-5 Urine RBC (Auto) 3-5 H U Hyaline Cast (Auto) 0-2 U Epithel Cells (Auto) 0-2 Urine Bacteria (Auto) None Seen Diagnostic Findings Abdomen/Pelvis CT 06/23/24 08:[address] WITHOUT CONTRAST CT DOSE: 1371.89 mGy.cm HISTORY: L flank pain h/o kidney stones TECHNIQUE: Multiaxial CT images of the abdomen and pelvis were performed without contrast. A dose lowering technique was utilized adhering to the principles of ALARA. COMPARISON STUDY: None. FINDINGS: The lung bases are clear. No pneumoperitoneum. No pneumatosis. There is a 2.6 cm sclerotic focus within the right posterior iliac bone. This is in determinate but may represent a bone island. A few additional smaller sclerotic foci within the pelvis also favor bone islands. Prior cholecystectomy. The unenhanced liver, spleen, adrenal glands, and pancreas are unremarkable. Normal caliber abdominal aorta. No retroperitoneal lymphadenopathy. There is a punctate stone within the lower pole of the right kidney. No left renal calculi. There is an 11 mm hypodense lesion within the interpolar right kidney. This is incompletely characterized on this noncontrast study but statistically represents a cyst. There is mild left hydroureteronephrosis which is secondary to a 2 mm stone either within or just beyond the left ureterovesical junction on image 315. The bladder is decompressed and not well evaluated. The prostate gland is mildly enlarged. No pelvic free fluid or pelvic lymphadenopathy. No bowel wall thickening or obstruction. Colonic diverticulosis. No evidence for acute diverticulitis. There is thickening and greater than expected density within the distal left renal vein. There is also mild surrounding fat stranding at this location. The fat stranding is likely due to the left-sided hydronephrosis. However, dedicated duplex ultrasound of the left renal vein is recommended to exclude the less likely possibility of a left renal vein thrombosis. IMPRESSION: 1. Mild left hydroureteronephrosis secondary to a 2 mm stone either within or just beyond the left ureterovesical junction. 2. Right-sided nephrolithiasis. 3. Greater than expected density within the distal left renal vein with mild surrounding fat stranding. The fat stranding is likely due to the left-sided hydronephrosis. However, dedicated duplex ultrasound of the left renal vein is recommended to exclude the less likely possibility of a left renal vein thromb osis. 4. No bowel wall thickening or obstruction. 5. A 2.5 cm sclerotic focus in the right posterior iliac bone. This is indeterminate but favors a bone island. 6. Colonic diverticulosis. No evidence for acute diverticulitis. ACT 112: Negative or not required by law. Electronically signed by: Nitin Bridges M.D. 06/23/2024 9:52 AM Renal Artery Duplex 06/23/24 10:21 US duplex renal artery HISTORY: 58 years-old Male r/o left renal vein thrombosis acute left-sided flank pain COMPARISON: CT same day TECHNIQUE: Multiple real-time sonographic images of the left renal vasculature was obtained assessing grayscale appearance, color and spectral flow FINDINGS: Left kidney measures 11.9 x 5.8 x 5.4 cm. Patent left renal artery with low resistance waveforms. Mild left-sided hydronephrosis with 3 mm calculus in the left ureterovesicular junction. Patent renal vein without thrombus identified. IMPRESSION: 1. Patent left renal artery and vein. 2. Mild left-sided hydronephrosis with 3 mm calculus again noted within the left ureterovesicular junction. ACT 112: Negative or not required by law. The above report was generated using voice recognition software. It may contain grammatical, syntax or spelling errors. Electronically signed by: Joce Hernandez M.D. 06/23/2024 11:55 AM ECG Indication: abdominal pain Rate (beats per minute): 49 Rhythm: sinus bradycardia Additional Comments: Intermittently is bradycardic, appears to have happened around same time of narcotic medication administration. Improved while pt is awake. Code Status & VTE Plan Code Status Full code Supervising Physician Co-Signing Physician Notes I have seen and discussed the case with the collaborating advanced practitioner. I agree with the above H&P. I have reviewed and confirmed the patients medical history, the findings on physical examination, and the patients diagnosis and treatment plan with Jeffrey MCGREGOR and agree with the information documented. In short, Mr. galdamez is a 58 year old man with history of HTN who is admitted for PMHx of CKD stage II, hypertension, GERD, MEREDITH on CPAP admitted for intractable pain 2/2 2mm stone c/b left hydroureteronephrosis. Fat stranding noted near renal vessels and duplex negative for thrombosis. Tele notable for sinus berny in the 30s-40 for up to 5 minutes. No prolonged UT. Appropriate chronotropic response with movement. No apparent drop beats Denies chest pain or syncope. GENERAL APPEARANCE: AxOx4, mildly uncomfortable gentleman HEENT: NC, AT. MMM. EOMI, clear conjunctiva, oropharynx clear. NECK: Supple without lymphadenopathy. No stiffness or restricted ROM. HEART: Normal rate and regular rhythm, normal S1/S1, no m/r/g LUNGS: CTAB, moving air well. No crackles or wheezes are heard. ABDOMEN: Soft, nontender, nondistended with good bowel sounds heard. BACK: + CVAT left , no obvious deformity. EXTREMITIES: Without cyanosis, clubbing or edema. NEUROLOGICAL: Grossly nonfocal. Alert and oriented, moving all 4 extremities. CN not formally tested but appear grossly intact. Skin: Warm and dry without any rash. #Left nephrolithiasis 2/2 2mm stone Tamsulosin 0.4 mg daily IVF LR at 125cc/hr analgesia--avoid opioids is bradycardia -Continue Toradol Will consult Urology given obstructive nature #Sinus Bradycardia runs to 5min in 30-40 while awake. ?if opioid contributing, will avoid monitor on tele TSH ordered Consult Cards--physiologic v concern given no increased physical activity contributing and dropping notably low for periods of time despite being awake and talking Rest of plan as above I spent a total of 35 minutes coordinating, documenting, and providing care for this patient excluding time spent in the performance of separately billed services. All of the aforementioned completed outside of collaborating with the assigned advanced practitioner for a full treatment plan. I have reviewed the advanced practitioner's documentation, and I agree with, and take responsibility for the plan of care
[2024-06-23] MEDS: KETOROLAC TROMETHAMINE 15 MG/ML VIAL IV ONE (15:26)
[2024-06-23] MEDS: ONDANSETRON INJ 2 MG/ML 2 ML VIAL IV STA (15:26)
--- NOTE | 2024-06-23 17:03 | Cardiology Consultation ---
Date of Consultation June 23, 2024 Assessment & Plan (1) Bradycardia: (2) Intractable nausea and vomiting: (3) Acute left flank pain: (4) Left ureteral calculus: Plan 58-year-old male admitted with intractable nausea and vomiting secondary to left sided kidney stone, 2-3 mm either within or just beyond the left ureterovesical junction with associated mild left-sided hyporureteronephrosis. Cardiology consultation requested due to marked sinus arrhythmia, seemingly asymptomatic, appearing to be secondary to exaggerated vagal activity and possibly Dilaudid. Recommendations: Maintain telemetry Avoid AV andreas blockers Avoid opioids if possible. Check TSH, Lyme screen Refer for resting echocardiography I spent a total of 38 minutes on the date of service in preparation, delivery, and documentation of the care provided to this patient excluding any time spent in the performance of separately billed services. This visit was a split-shared visit with the substantive portion of the medical decision making performed by the supervising ripsawyer/billing provider. Supervising Physician Co-Signing Physician Notes Patient was seen and personally examined. Full assessment and plan as outlined above. Care and management discussed with advanced provider and personally endorsed 58-year-old male presenting with severe pain nausea dry heaves in association with renal lithiasis. Transient bradycardia intermittently in ER without pauses of significant Suspect vagally mediated as above Will follow as testing returns Would maintain telemetry I spent a total of 20 minutes on the date of service in preparation, delivery, and documentation of the care provided to this patient excluding any time spent in the perform History of Present Illness Reason for Consultation: Bradycardia [facility] Attending Physician: [facility] History of Present Illness Mr. Jeet Gorman is a 58-year-old male who presented to [facility] on June 23, 2024 with acute abdominal pain, left flank pain, nausea, dry heaving starting early this morning. Chest x-ray showed no acute process. CT scan of the abdomen and pelvis revealed a 2 mm stone either within or just beyond the left ureterovesical junction with mild left-sided hyporureteronephrosis and right-sided nephrolithiasis. In the ER the patient received IV fluid resuscitation, morphine, Zofran, Toradol, and dilauded. Cardiology consultation requested secondary to observed bradycardia. Initial EKG revealed sinus bradycardia with a ventricular rate of 49 bpm, marked sinus arrhythmia. Continuous belt changer reveals intermittent marked sinus bradycardia with heart rates in the 30s, currently 48 to 52 bpm. Patient denies dizziness, lightheadedness, near-syncope, syncope, chest pain, or shortness of breath. Resting comfortably. [facility] for [facility] loss. Past Medical and Surgical History: Hypertension Enlarged ascending aorta MEREDITH, CPAP Asthma Post-traumatic stress disorder Depression Esophagitis Irritable bowel syndrome Diverticular disease Tonsils and adenoids Erectile dysfunction Hiatal hernia Appendicectomy Cholecystectomy Inguinal hernia surgery x 2 Vasectomy Osteoarthritis Left knee surgery Lumbosacral spondylosis without myelopathy Family History: Notable for CAD on paternal side. Mother with breast cancer. Social History: Never smoker. No smokeless tobacco. Social Alcohol. No illicit drug use. 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 [facility] Allergies Allergy/AdvReac Type Severity Reaction Status Date / Time No Known Allergies Allergy Unverified 06/23/24 11:16 Home Medications Medication Instructions Recorded Confirmed Type aspirin 81 mg capsule 81 mg PO DAILY 06/23/24 06/23/24 History lisinopril 10 mg tablet 10 mg PO DAILY 06/23/24 06/23/24 History omeprazole 20 mg capsule,delayed 40 mg PO DAILY 06/23/24 06/23/24 History release Patient History Medical History Hypertension Social History Smoking Status: Never smoker Preferred Language: Setswana Feels Safe at Home: Yes Review of Systems Review of Systems: Complete Review of Systems is as stated above, negative, or noncontributory. Physical Exam Physical Exam: General: A&Ox3. NAD. HENT: Normocephalic. Atraumatic. Eyes: PER. Conjunctiva pink, sclera clear. Neck: No carotid bruits. No JVD. No HJR. Heart: Regular at 50 bpm. No murmur. No rub. No gallop. PMI is nondisplaced. Lungs: Clear to auscultation. Abdomen: +BS. Soft. Nontender. No masses or organomegaly. Extremities: No clubbing, cyanosis, or edema. Limited neurological examination is without focal deficits. Pulses: radial=2/4, posterior tibial=2/4. Results & Data Vital Signs (Past 12 Hours) Vital Signs Pulse Resp BP Pulse Ox O2 Del Method 06/23/24 16:39 41 L 16 133/84 97 06/23/24 15:46 133/84 06/23/24 15:45 39 L 17 133/84 06/23/24 15:30 42 L 14 130/79 97 06/23/24 13:30 120/79 06/23/24 13:30 56 L 16 120/79 06/23/24 13:30 50 L 18 120/79 98 06/23/24 13:14 53 L 17 128/85 96 06/23/24 12:30 148/109 H 06/23/24 12:24 63 13 100 06/23/24 12:15 68 18 100 06/23/24 12:09 45 L 17 94 06/23/24 12:00 60 17 137/79 94 06/23/24 11:54 79 23 136/92 98 06/23/24 10:30 79 16 142/89 H 100 06/23/24 10:00 62 17 126/84 94 06/23/24 09:42 60 14 130/88 100 Room Air 06/23/24 09:03 71 06/23/24 09:02 64 20 100 Room Air 06/23/24 09:00 43 L 16 118/85 99 06/23/24 08:43 72 18 130/81 100 Room Air Laboratory Results Cardiac Enzymes 06/23/24 Range/Units 09:00 AST 23 (13-39) U/L CBC 06/23/24 Range/Units 09:00 WBC 4.67 L (4.8-10.8) K/ul RBC 5.37 (4.70-6.10) M/uL Hgb 15.9 (14.0-18.0) g/dl Hct 46.3 (42.0-52.0) % Plt Count 200 (130-400) K/uL Neut # (Auto) 2.35 (1.40-6.50) K/uL Lymph # (Auto) 1.62 (1.20-3.40) K/uL [place] # (Auto) 0.45 (0.11-0.59) K/uL Eos # (Auto) 0.18 (0.00-0.50) K/uL Baso # (Auto) 0.05 (0.00-0.20) K/uL Comprehensive Metabolic Panel 06/23/24 Range/Units 09:00 Sodium 138 (136-145) mmol/L Potassium 3.7 (3.5-5.1) mmol/L Chloride 105 (98-107) mmol/L Carbon Dioxide 25 (21-32) mmol/L BUN 16 (6-23) mg/dl Creatinine 1.07 (0.6-1.4) mg/dl Glucose 137 H (70-99(Fasting)) mg/dl Calcium 10.0 (8.6-10.3) mg/dl AST 23 (13-39) U/L ALT 25 (7-52) U/L Alkaline Phosphatase 89 (34-104) U/L Total Protein 7.6 (6.0-8.3) gm/dl Albumin 4.6 (3.4-5.0) gm/dl Intake and Output 06/23/24 06/23/24 06/23/24 06:59 14:59 22:59 Intake Total 500 / 1500 1000 / 1500 Balance 500 / 1500 1000 / 1500 Intake: IV 500 / 1500 1000 / 1500 Sodium Chloride 0.9% 1,000 ml @ 1000 / 1000 999 mls/hr IV .Q1H1M ONE Rx#: [id number] Sodium Chloride 0.9% 500 ml @ 500 / 500 999 mls/hr IV .Q31M ONE Rx#: [id number] Other: Weight 96.9 kg Weight Measurement Method Built in [facility] Patient Weight 06/24/24 06:59 Weight 96.9 kg Diagnostic Findings May 2022 [employer] Monitor: Patient had a min HR of 42 bpm, max HR of 184 bpm, and avg HR of 86 bpm. Predominant underlying rhythm was Sinus Rhythm. 3 Supraventricular Tachycardia runs occurred, the run with the fastest interval lasting 10 beats with a max rate of 184 bpm (avg 153 bpm); the run with the fastest interval was also the longest. Isolated SVEs were rare (<1.0%), SVE Couplets were rare (<1.0%), and SVE Triplets were rare (<1.0%). Isolated VEs were rare (<1.0%), and no VE Couplets or VE Triplets were present. The patient submitted 3 event markers which correlated with sinus tachycardia rates 136,156 and 155 beats per minute Impression: Sinus rhythm, average rate 86 beats per minute with 3 short runs of atrial tachycardia nonsustained May TTE Interpretation Summary (as per Dr. Echevarria): The qualitative LV ejection fraction is 60-64% (normal). The left ventricular diastolic function is mildly abnormal (grade I). Mild mitral regurgitation is present. Mild tricuspid regurgitation is present. There is no evidence of pulmonary hypertension. The proximal ascending thoracic aorta is mildly enlarged. Compared to prior study of 11/08/2019, there is no significant change. Telemetry: Sinus bradycardia at 48 bpm currently. Marked sinus bradycardia into the 30s intermittently throughout ER stay.
[2024-06-23] MEDS ORDERED: KETOROLAC 30 MG/ML VIAL IV PRN (17:18)
[2024-06-23] MEDS ORDERED: KETOROLAC TROMETHAMINE 15 MG/ML VIAL IV PRN (17:18)
[2024-06-23 17:26] LABS: Thyroid Stimulating Hormone 3.992 uIu/ml (0.300-4.500)
[2024-06-23] MEDS: SODIUM CHLORIDE 0.9% 1,000 ML IV SCH (18:32)
[2024-06-23] MEDS: ACETAMINOPHEN 325 MG TAB PO PRN (19:34)
[2024-06-23] MEDS: LACTATED RINGER'S 1,000 ML IV SCH (19:35)
[2024-06-23] MEDS: TAMSULOSIN HCL 0.4 MG CAP PO SCH (19:36)
[2024-06-23] MEDS: ONDANSETRON INJ 2 MG/ML 2 ML VIAL IV PRN (21:54)
[2024-06-24 06:27] LABS: Hemoglobin 12.7 g/dl (14.0-18.0); Mean Corpuscular Hemoglobin 29.7 pg (25.0-34.0); Mean Corpuscular Hgb Conc 34.3 g/dL (32.0-36.0); Mean Corpuscular Volume 86.7 fL (80.0-100.0); Mean Platelet Volume 9.5 fL (9.4-12.4); Platelet Count 148 K/uL (130-400); RDW Coefficient of Variation 12.5 % (11.5-14.5); RDW Standard Deviation 39.6 fL (36.4-46.3); Red Blood Count 4.27 M/uL (4.70-6.10); White Blood Count 5.29 K/ul (4.8-10.8)
[2024-06-24 06:34] LABS: BUN Creatinine Ratio 12.5 (10-20); Calcium 8.5 mg/dl (8.6-10.3); Creatinine Clr Calc Pharmacy 67.3 ml/min; Est GFR (African American) 66.5 ml/min; Est GFR (Non-African American) 57.4 ml/min; Potassium 3.6 mmol/L (3.5-5.1)
[2024-06-24] MEDS: PANTOprazole 40 MG TAB PO SCH (08:43)
[2024-06-24] MEDS: ASPIRIN 81 MG ECTAB PO SCH (08:43)
[2024-06-24] MEDS: lisinopril 10 MG TAB PO SCH (08:44)
--- NOTE | 2024-06-24 09:03 | Urology Consultation ---
Date of Consultation June 24, 2024 Assessment & Plan (1) Left ureteral calculus: (2) Acute left flank pain: 58-year-old male admitted for left ureteral calculus with intractable pain, nausea and vomiting Patient is afebrile and hemodynamically stable Labs reviewedcreatinine 1.36, WBC 5.29, hemoglobin 12.7 Urinalysis on arrival was not suggestive of infection CT reviewed and discussed with patient2 mm left UVJ stone with mild hydroureteronephrosis; nonobstructing right renal calculus We discussed that his stone has a good probability of passing spontaneously given its size and location He is completely asymptomatic at this time No acute intervention planned today Discussed stone management with patient and his at bedside Patient can be discharged when medically stable Recommend continue with hydration, strain urine We will arrange outpatient follow-up for stone management will sign off, please contact our service with any additional questions or concerns History of Present Illness Attending Physician: Cornelia Perez MD History of Present Illness This is a 58-year-old male with past medical history of kidney stones who presented to the emergency department for evaluation of acute left flank pain, nausea and vomiting. On arrival to ED, he was afebrile and hemodynamically stable. Lab work showed creatinine 1.07, WBC 4.67, hemoglobin 15.9. Urinalysis notable for 1+ blood, 3- 5 RBC, negative for bacteria. Workup in ED included CT abdomen pelvis without contrast which showed mild left hydroureteronephrosis secondary to a 2 mm stone within or just beyond the left UVJ. Right-sided nephrolithiasis. Additionally noted greater than expected density within the distal left renal vein with mild surrounding fat stranding; dedicated duplex ultrasound of the left renal vein was recommended to exclude possibility of a left renal vein thrombosis. Renal artery duplex showed patent left renal artery and vein. Additionally noted mild left-sided hydronephrosis with 3 mm calculus again noted within the left UVJ. He was admitted to the hospital medicine service for left ureteral calculus with intractable nausea vomiting and sinus bradycardia. He was treated with IV fluids, ketorolac, morphine and ondansetron in the emergency department. Patient seen and examined at bedside this morning. He is awake and resting in bed. Denies known stone passage overnight. He denies flank pain, nausea or vomiting at present. No fever or chills. He is voiding spontaneously without difficulty. Allergies Allergy/AdvReac Type Severity Reaction Status Date / Time No Known Allergies Allergy Unverified 06/23/24 11:16 Home Medications Medication Instructions Recorded Confirmed Type aspirin 81 mg capsule 81 mg PO DAILY 06/23/24 06/23/24 History lisinopril 10 mg tablet 10 mg PO DAILY 06/23/24 06/23/24 History omeprazole 20 mg capsule,delayed 40 mg PO DAILY 06/23/24 06/23/24 History release Patient History Medical History Hypertension Social History Smoking Status: Never smoker Hx Alcohol Use: Yes Alcohol type: beer Hx Substance Use: No Preferred Language: [place] [employer] Specialist Required: No Beliefs That Will Affect Care: None Current Living Situation: Spouse Other Information That Helps Us Care for You: No Feels Safe at Home: Yes Safety Concerns: Feels Safe At This Time Review of Systems Review of Systems: All systems reviewed & are unremarkable except as noted in HPI & below Physical Exam Constitutional: well developed and well nourished; no acute distress Respiratory: normal respiratory effort; no respiratory distress and no labored breathing Gastrointestinal (Abdomen): Inspection/Auscultation: abdomen normal to inspection Musculoskeletal: Head/Neck/Chest: normocephalic Neurologic: moves all extremities and awake Psychiatric: Orientation: alert and oriented x 3 Results & Data Vital Signs (Past 12 Hours) Vital Signs Temp Pulse Pulse Resp BP Pulse Ox O2 Del Method 06/24/24 08:00 36.6 C 64 18 144/78 H 94 Room Air 06/24/24 07:19 53 L 06/24/24 03:59 36.7 C 65 18 105/67 94 Room Air 06/23/24 22:47 36.5 C 60 18 104/67 93 Room Air 06/23/24 22:01 41 L PG Care Time/CCT Total # of Minutes Spent Total Time Spent with Patient: Total time spent is greater than 50% in coordination of care (as documented) at patient's floor/unit and/or counseling patient: Coding Level of Care Code 64275 IN/OBS CONSULT LVL 3,45M Diagnoses Left ureteral calculus N20.1 Acute left flank pain R10.9
--- NOTE | 2024-06-24 09:52 | Cardiology Progress Note ---
Date of Service June 24, 2024 Assessment & Plan (1) Bradycardia: (2) Intractable nausea and vomiting: (3) Acute left flank pain: (4) Left ureteral calculus: Plan 58-year-old male admitted with intractable nausea and vomiting secondary to left sided kidney stone, 2-3 mm either within or just beyond the left ureterovesical junction with associated mild left-sided hyporureteronephrosis. Cardiology consultation requested due to sinus bradycardia/sinus arrhythmia. Suspected e xaggerated vagal activity and possibly Dilaudid as etiologies. TSH within normal range. Lyme screen negative. Patient not prescribed AV andreas blockers. Asymptomatic. Normal resting echocardiogram. Recommendations: 1. Avoid rate lowering therapies - AV andreas blockers, opioids and sedatives 2. CPAP QHS 3. Outpatient 14-day Zio monitor. 4. Cardiology follow-up after the Zio monitor is resulted or as needed. 5. Cardiology will sign off. Please contact with any questions or concerns. I spent a total of 23 minutes on the date of service in preparation, delivery, and documentation of the care provided to this patient excluding any time spent in the performance of separately billed services. This visit was a split-shared visit with the substantive portion of the medical decision making performed by the supervising loom stop checker/billing provider. Admission and Anticipated Discharge Date Admission Date: June 23, 2024 Supervising Physician Co-Signing Physician Notes Patient was seen and personally examined. Full assessment and plan as outlined above. Care and management discussed with advanced provider and personally endorsed No profound bradycardia or AV block overnight Plan and recommendations as above I spent a total of 20 minutes on the date of service in preparation, delivery, and documentation of the care provided to this patient excluding any time spent in the perform Subjective Patient seen and examined. Chart, medications, and telemetry reviewed. Feeling well. No complaints. Telemetry: Sinus bradycardia down into the 40s overnight, currently 50s to 80s. Patient did not utilize CPAP last evening. June 24, 2024 TTE Interpretation Summary ([facility], Dr. Stern): The left ventricle and all chambers are normal in size. Normal left ventricular wall thickness. Normal left ventricular wall motion. Normal systolic and diastolic left ventricular function. EF 60 to 65%. No valvular disease. Review of Systems Review of Systems: Complete Review of Systems is as stated above, negative, or noncontributory. Physical Exam Physical Exam: General: NAD. HENT: Normocephalic. Atraumatic. Neck: No JVD. Heart: Regular at 56 bpm. No murmur. Lungs: Clear to auscultation. Abdomen: +BS. Extremities: No clubbing, cyanosis, or edema. Limited neurological examination is without focal deficits. Results & Data Vital Signs (Past 12 Hours) Vital Signs Temp Pulse Pulse Resp BP Pulse Ox O2 Del Method 06/24/24 08:00 36.6 C 64 18 144/78 H 94 Room Air 06/24/24 07:19 53 L 06/24/24 03:59 36.7 C 65 18 105/67 94 Room Air 06/23/24 22:47 36.5 C 60 18 104/67 93 Room Air 06/23/24 22:01 41 L Laboratory Results CBC 06/24/24 Range/Units 05:32 WBC 5.29 (4.8-10.8) K/ul RBC 4.27 L (4.70-6.10) M/uL Hgb 12.7 L D (14.0-18.0) g/dl Hct 37.0 L (42.0-52.0) % Plt Count 148 (130-400) K/uL Comprehensive Metabolic Panel 06/24/24 Range/Units 05:32 Sodium 136 (136-145) mmol/L Potassium 3.6 (3.5-5.1) mmol/L Chloride 107 (98-107) mmol/L Carbon Dioxide 25 (21-32) mmol/L BUN 17 (6-23) mg/dl Creatinine 1.36 (0.6-1.4) mg/dl Glucose 124 H (70-99(Fasting)) mg/dl Calcium 8.5 L (8.6-10.3) mg/dl Intake and Output 06/23/24 06/24/24 06/24/24 22:59 06:59 14:59 Intake Total 1300 / 2966.667 1166.667 / 2966.667 675 / 675 Output Total 250 / 250 Balance 1300 / 2716.667 916.667 / 2716.667 675 / 675 Intake: IV 1000 / 2466.667 966.667 / 2466.667 675 / 675 Lactated Ringer's 1,000 ml @ 966.667 / 966.667 675 / 675 125 mls/hr IV .Q8H JUDY Rx#: [id number] Sodium Chloride 0.9% 1,000 ml @ 1000 / 1000 999 mls/hr IV .Q1H1M ONE Rx#: [id number] Oral 300 / 500 200 / 500 Output: Urine 250 / 250 Other: Weight 95.254 kg 96 kg Weight Measurement Method Built in [facility] Built in [facility]
--- NOTE | 2024-06-24 13:22 | Discharge Summary ---
Date of Service June 24, 2024 Admission HPI Per Admitting Provider This is a 58-year-old male with PMHx of CKD stage II, hypertension, GERD, MEREDITH on CPAP, who presents to the hospital with acute onset of abdominal pain, nausea and dry heaves which started this morning around 6:30a. Pain in left flank/abdomen and waxes and wanes. Rates it at it's worse an 8 out of 10. Pt initially presented to [place] but was then sent here. He had one kidney stone previously maybe 30 years ago. He feels like he needs to urinate but is not getting much out, denies hematuria. Pt was previously taking finasteride and stopped taking it about 2 years ago and is up in the middle of the night janna quently at this time. His girlfriend is present with him at bedside. Pt notes current nausea and is requesting meds. CT scan has revealed a of left-sided 2 mm to 3 mm stone and mild hydroureteron ephrosis. Despite IV fluids, morphine, Toradol and Dilaudid in the ER patient's symptoms have not improved and therefore the ER has asked our team to admit the patient. EKG shows sinus bradycardia with HR of 49, he also berny down into the 30s for about 5 minutes while in the ER. Pt denies significant exercise or cardiac training to have caused this, unknown any previous issues with HR, no cardiac complaints. No known tick bites. Pt denies hx of cardiac issues. Surgical Hx: History of knee arthroscopy and repair Colonoscopy Vasectomy Laparoscopic cholecystectomy in 2006 EGD Appendectomy Tonsils and adenoids removed Laparoscopic hernia repair x 2 Family Hx Mother: breast cancer Social Hx: no smoking, tobacco use or ilicit drug use. Drinks 1 alcoholic beverage per week. Admission Exam Per Admitting Provider General: awake, alert, no apparent distress, white male, BMI 32 Head: Normocephalic, atraumatic ENT: PERRL, EOMI, no pharyngeal exudate, mucous membranes moist Chest: Clear to auscultation, on room air, no adventitious breath sounds Cardiac: sinus, HR in 70s at bedside, noted bradycardiac on EKG and per nursing, no murmur, no JVD, normal peripheral pulses, good capillary refill Abdominal: NABS x 4 quadrants, soft, nondistended, nontender to palpation in Left flank, no rebound or guarding Extremities: Normal inspection, no peripheral edema or erythema, calfs nontender to palpation Psych: Normal mood and affect Neuro: AAO x 3, strength intact bilaterally and rated 5/5, no motor deficits, speech is clear, no peripheral sensory deficits Principal Diagnosis Nephrolithiasis Sinus Bradycardia Discharge Exam General: awake, alert, no apparent distress, white male, BMI 32 Head: Normocephalic, atraumatic ENT: PERRL, EOMI, no pharyngeal exudate, mucous membranes moist Chest: Clear to auscultation, on room air, no adventitious breath sounds Cardiac: sinus, HR in 60s at bedside, no murmur, no JVD, normal peripheral pulses, good capillary refill Abdominal: NABS x 4 quadrants, soft, nondistended, nontender to palpation in Left flank, no rebound or guarding Extremities: Normal inspection, no peripheral edema or erythema, calfs nontender to palpation Psych: Normal mood and affect Neuro: AAO x 3, strength intact bilaterally and rated 5/5, no motor deficits, speech is clear, no peripheral sensory deficits Discharge Data Allergies Allergy/AdvReac Type Severity Reaction Status Date / Time No Known Allergies Allergy Unverified 06/23/24 11:16 Consultations 06/23/24 14:45 ED Decision to Admit Stat 06/23/24 16:27 Consult Cardiology Routine 06/23/24 16:59 Consult Urology Routine Ordered Studies 06/23/24 08:57 CT abd pelvis wo con Stat 06/23/24 10:21 US doppler renal [US duplex renal art/vein BI] Stat Hospital Course (1) Acute left flank pain: (2) Left ureteral calculus: (3) Bradycardia: (4) Intractable nausea and vomiting: Left Nephrolithiasis Intractable N/V - Obs on med surg tele - CT abd/pelvis showing 1. Mild left hydroureteronephrosis secondary to a 2 mm stone either within or just beyond the left ureterovesical junction. 2. Right-sided nephrolithiasis. 3. Greater than expected density within the distal left renal vein with mild surrounding fat stranding. The fat stranding is likely due to the left-sided hydronephrosis. However, dedicated duplex ultrasound of the left renal vein is recommended to exclude the less likely possibility of a left renal vein thrombosis. 4. No bowel wall thickening or obstruction. . A 2.5 cm sclerotic focus in the right posterior iliac bone. This is indeterminate but favors a bone island. 6. Colonic diverticulosis. No evidence for acute diverticulitis. - US reviewed showing 1. Patent left renal artery and vein. 2. Mild left-sided hydronephrosis with 3 mm calculus again noted within the left ureterovesicular junction. - Pain control ordered including toradol IV, avoiding narcotics for now. Patient received a total of Toradol 15 mg IV, morphine sulfate 4 mg x 2, and Dilaudid 0.5 mg x 1 in the ER. Possible that increased narcotic medication had caused bradycardia, will monitor on tele - NSS at 150 ml/hr, Flomax added, Strain urine -Pain improved significantly, possible that he passed stone although nothing seen in strainer -Urology consulted and did not deem needs for further intervention HTN Sinus Bradycardia - Cont home meds of lisinopril, pt is not on beta blockade or other rate controlling meds to have caused bradycardia - May continue baby aspirin -Cards consulted and reviewed echocardiogram - no acute findings -Planned outpt Zio patch monitoring as outpt - cards to set this up Outpt appointments with PCP, urology and cards requested prior to dc DVT ppx: teds, scds, a,bulatory Lines: PIV x 1 Diet: HH CODE: FULL Dispo: From home, discharge home TODAY Total Time Total Time Spent Total Time Spent (In Minutes): 37 Discharge Plan Discharge Items Patient Disposition: Home - Self-Care Reason For Visit: NEPHROLITHIASIS Discharge Diagnosis: Nephrolithiasis (kidney stone) Sinus bradycardia Condition on Discharge: Good Activity: Resume your previous activity Lifting: Gradually increase as tolerated Bathing: No limitations Sexual Activity: When tolerated Exercise/Sports: Rest today and Gradually increase as tolerated Driving/Machine Use: No limitations Weightbearing: Full weightbearing Non-emergency contact: Primary Care Provider and Quality Control Lead Call non-emergency contact if: you have any medication questions, your symptoms worsen and your temperature is above 101 Follow-up/Referrals: David Shahid MD [Primary Care Provider] - Diet: Heart Healthy Addtl Attending Provider Instructions: You were admitted to [facility] due to left flank pain and diagnosed with kidney stone. During your stay here you were treated with supportive care, medications, intravenous fluids and your symptoms improved. Imaging studies which were completed include CT abdomen and pelvis, and were abnormal showing a 2mm left sided kidney stone. This did not require urological intervention. During your stay you were also found to have very slow heart rate ( sinus bradycardia) on monitoring. This was suspected to be due to pain medications which were administered in the ER due to severe abdominal pain. This somewhat improved overnight. Cardiology has recommended you wear a zio monitor which will record your heart activity over the 7days you wear it. This will be arranged by cardiology. Medications: Continue taking you medications as prescribed Appointments: 1. Follow up with PCP within 1 week: Dr. García on 06/29 at 8:50am 2. Follow up with cardiology, orders for the Zio patch are being referred by Saran Fairchild PA-C. You should have follow up with cardiology after the zio patch monitoring is completed x 7 days and mailed back in, ideally your follow up should be within 2-3 weeks. Please call to schedule an appointment if you do not hear from their office within 2 business days, an appointment has been requested for you. 3. Follow up with urology, Dr. Bhavik Limon 08/01 at 8:30am If you have questions or concerns, please call the hospital and ask to speak to a [facility] Hospitalist. Pending Studies at Discharge: No Stand-Alone Forms: My [facility] Doubloon, Smoking Cessation Medications and DC Order Prescriptions: New tamsulosin 0.4 mg Capsule 0.4 mg PO HS 30 Days Qty: 30 0RF ondansetron 4 mg tablet,disintegrating 4 mg PO Q6H PRN (Reason: nausea and vomiting) 5 Days Qty: 28 0RF Continued lisinopril 10 mg tablet 10 mg PO DAILY omeprazole 20 mg capsule,delayed release(DR/EC) 40 mg PO DAILY aspirin 81 mg Capsule 81 mg PO DAILY Discharge Orders: Discharge Order (Routine); Ordered 06/24/24 Ordered By: Lynn Murphy Admission Data Admit Date/Time: 06/23/24 15:00 Attending Provider: Cornelia Perez Admit Provider: Cornelia Perez Primary Care Provider: David Shahid Other Providers: Cornelia Perez; Harry Stern; Chivo Simmons Other Interventions: Discharge Summary Assessment (RN) Last Done: 06/24/24 10:10 Supervising Physician Co-Signing Physician Notes I have seen and discussed the case with the collaborating advanced practitioner. I agree with the above H&P. I have reviewed and confirmed the patients medical history, the findings on physical examination, and the patients diagnosis and treatment plan with Jeffrey MCGREGOR and agree with the information documented. Admitted for pain management iso stone. Noted to be bradycardic. Eval negative. Patient with resolution of symptoms this am. On day of discharge, patient with stable vitals, eating well, ambulating without difficulty and denies any acute concerns. I spent a total of 15 minutes coordinating, documenting, and providing care for this patient excluding time spent in the performance of separately billed services. All of the aforementioned completed outside of collaborating with the assigned advanced practitioner for a full treatment plan. I have reviewed the advanced practitioner's documentation, and I agree with, and take responsibility for the plan of care
--- NOTE | 2024-06-24 19:15 | Electrocardiogram Report ---
Test Reason : Blood Pressure : / mmHG Vent. Rate : 049 BPM Atrial Rate : 049 BPM P-R Int : 152 ms QRS Dur : 098 ms QT Int : 456 ms P-R-T Axes : 049 -21 000 degrees QTc Int : 411 ms Sinus bradycardia with marked sinus arrhythmia Otherwise normal ECG When compared with ECG of 30-MAY-2022 13:58, No significant change was found Confirmed by Kirby Brown ([id number]) on 06/24/2024 7:15:12 PM Referred By: Confirmed By:Kirby Brown
--- NOTE | 2024-06-24 19:16 | Electrocardiogram Report ---
Test Reason : Blood Pressure : / mmHG Vent. Rate : 034 BPM Atrial Rate : 034 BPM P-R Int : 174 ms QRS Dur : 094 ms QT Int : 510 ms P-R-T Axes : 000 -30 -38 degrees QTc Int : 383 ms Marked sinus bradycardia Left axis deviation T wave abnormality, consider inferolateral ischemia Abnormal ECG When compared with ECG of 23-JUN-2024 09:12, T wave inversion more evident in Inferolateral leads Confirmed by Kirby Brown ([id number]) on 06/24/2024 7:15:53 PM Referred By: REFERRED SELF Confirmed By:Kirby Brown
[2024-06-28 05:22] LABS: Babesia microti DNA Not Detected (Not Detected)
== END 2024-06-24 10:35 | disposition home or self-care (01) ==
LOC: ED 08:39 → EDINP 08:39 → 2N 17:18